=== PATIENT | female | born 1960 | race Caucasian/White ===

== ENCOUNTER 2017-07-28 07:47 | Observation (INO) ==
[2017-07-28] MEDS ORDERED: ALBUTEROL/IPRATROPIUM 2.5mg-0.5mg/3ml NEB IH ONE (07:56)
[2017-07-28] MEDS ORDERED: METHYLPREDNISOLONE SOD SUCC 125mg/2ml INJECTION IVP ONE (07:56)
[2017-07-28] MEDS: SALINE FLUSH 10ml SYRINGE IVF PRN ×2 (08:05→08:13)
--- NOTE | 2017-07-28 09:10 | Emergency Department Report ---
SOB HPI - General Chief Complaint: Shortness of Breath/Dyspnea Stated Complaint: diff breathing, upper resp issues Time Seen by Provider: 07/28/17 07:55 - History of Present Illness 57-year-old female presents with acute shortness of breath. This began greater than 3 days ago. She has not been sleeping well since it started. She is out of medication for her nebulizer. She is leaning forward tripoding with her hands and taking very rapid breaths while sitting on the gurney. No nausea or vomiting , no diarrhea. She does smoke at least a pack a day and drinks alcohol daily. - Related Data Home Medications Medication Instructions Recorded Confirmed Acetaminophen/Dextromethorphan 30 ml PO Q4H PRN 07/28/17 07/28/17 [Daytime Cold & Cough Liquid] [place] [J[place] 650 mg PO Q4H PRN 07/28/17 07/28/17 Original Tab Eff] Aspirin 325 mg PO PRN PRN 07/28/17 07/28/17 Dm/Acetaminophen/Doxylamine 30 ml PO Q4H PRN 07/28/17 07/28/17 [Nighttime Cold-Flu Liquid] Ibuprofen 600 mg PO Q6H PRN 07/28/17 07/28/17 Previous Rx's Medication Instructions Recorded Azithromycin [Zithromax] 500 mg PO DAILY #3 tab 07/28/17 predniSONE [Prednisone] 10 mg PO DAILY #18 tab 07/28/17 Allergies Allergy/AdvReac Type Severity Reaction Status Date / Time hydroxychloroquine Allergy Unknown Verified 07/28/17 07:56 Review of Systems All systems: reviewed and negative except as stated PFSH Patient Stated Medical History Asthma Yes Chronic Obstructive Pulmonary Yes Disease (COPD) Hx Urinary Tract Infection Yes Osteoarthritis Yes Post Menopausal Yes - Social History Smoking status: Current every day smoker second hand exposure: Yes Substance use type: does not use Physical Exam - Limitations Limitations: no limitations - General General appearance: alert, anxious, in distress (respiratory) - Normal Exams: Head:: Normocephalic without trauma Cardiovascular:: without murmur or gallop, Pulses 2+ all extremities, capillary refill, <2 seconds all extremities Abdomen:: Bowel sounds positive, soft, non-tender, non-distended, no hepatosplenomegaly, masses or bruits noted Neurological:: Patient is alert, and oriented, cranial nerves, motor/sensory/ cerebellar, exams w/o gross deficits, to observation Psychiatric:: Patient exhibits, appropriate attention, emotion and affect - Respiratory Respiratory exam: Present: wheezes (tachypnea with wheezes on expiration. She is moving very little air.) - Cardiovascular Cardiovascular exam: Present: normal rhythm, tachycardia, normal heart sounds Course Vital Signs Pulse Oximetry 67 L 07/28/17 07:55 Temperature 97.3 F 07/28/17 07:57 Pulse Rate 91 07/28/17 09:00 Respiratory Rate 24 07/28/17 09:30 Blood Pressure 122/58 07/28/17 09:00 Pulse Oximetry 99 07/28/17 09:30 Shortness of Breath/Dyspnea - [facility] Narrative Medical decision making narrative: IV started with normal saline bolus. Obtained CBC, CMP, d-dimer and chest x- ray. Also swab for influenza. White count is normal CMP does show some mildly low sodium. D-dimer is essentially negative certainly per age. Chest x-ray shows haziness in right. Likely viral type pneumonia. Influenza A did discuss back positive. Patient be placed on prednisone to help with inflammation. She is breathing much better now that she is at the Solu-Medrol and a breathing treatment. However does work towards admitting her, her O2 sats dropped below 89 % every time we would pull oxygen. With O2, she does very well in fact required only one 1/2 L of oxygen typically at this point. She does not use oxygen at home. When she is discharged she will need refills for her nebulizer. Spoke with the hospitalist on-call who accepted admission of patient. - Differential Diagnosis Likely: acute exacerbation of chronic obstructive airways disease, congestive heart failure, community acquired pneumonia, asthma with exacerbation, pulmonary embolism - Medical Records Attestation: I reviewed the patient's medical records. - Lab Data Attestation: I reviewed the patient's lab results. Result diagrams: 07/28/17 08:16 07/28/17 08:16 Lab Results 07/28/17 07/28/17 07/28/17 Range/Units 08:16 08:16 08:16 WBC 4.9 (4.5-11.0) T/MM3 RBC 4.14 (4.00-5.20) M/MM3 Hgb 13.2 (12-16) GM/DL Hct 39.8 (36-46) % MCV 96.1 (80-100) UM3 MCH 31.9 (26-34) UUG MCHC 33.2 (31-37) GM/DL RDW Std Deviation 40.7 (36.9-50.2) FL Plt Count 217 (130-400) T/MM3 MPV 8.9 L (9.4-12.4) UM3 Immature Gran % (Auto) 0.0 (0.0-0.5) % Neut % (Auto) 69.6 H (33-66) % Lymph % (Auto) 20.0 L (23-45) % Love % (Auto) 10.0 H (0-9.0) % Eos % (Auto) 0.0 (0-4) % Baso % (Auto) 0.4 (0-2) % Neut # (Auto) 3.4 (1.8-7.7) T/MM3 Lymph # (Auto) 1.0 (1-4.8) T/MM3 Love # (Auto) 0.5 (0-0.8) T/MM3 Eos # (Auto) 0.0 (0-0.5) T/MM3 Baso # (Auto) 0.0 (0-0.2) T/MM3 Abs Immat Gran (auto) 0.00 (0.00-0.03) T/MM3 D-Dimer (0-230) NG/ML Turbidity < 20 (0-20) Sodium 132 L (134-144) MEQ/L Potassium 4.2 (3.6-5) MEQ/L Chloride 93 L (98-107) MEQ/L Carbon Dioxide 32 H (22-30) MEQ/L Anion Gap 7 (5-15) MEQ/L BUN 10.0 (7-17) MG/DL Creatinine 0.5 L (0.7-1.2) MG/DL GFR Calculation 128 BUN/Creatinine Ratio 20 (6-26) RATIO Glucose 109 (65-110) MG/DL Calculated Osmolality 255 L (261-280) MOSM/KG Calcium 9.0 (8.4-10.2) MG/DL Total Bilirubin < 0.10 L (0.20-1.30) MG/DL Icterus Index < 2 (0-7) AST 33 (14-36) U/L ALT 38 (9-52) U/L Alkaline Phosphatase 54 (38-126) U/L Troponin I < 0.012 (0-0.12) ng/ml B-Natriuretic Peptide 286 H (0-175) pg/mL Total Protein 7.0 (6.3-8.2) G/DL Albumin 4.0 (3.5-5.0) G/DL Globulin 3.0 (2.4-3.6) G/DL Albumin/Globulin Ratio 1.3 (1.1-2.2) RATIO Specimen Hemolysis < 15 (0-25) Influenza Type A (PCR) Positive A* (Negative) Influenza Type B (PCR) Negative (Negative) 07/28/17 Range/Units 08:16 WBC (4.5-11.0) T/MM3 RBC (4.00-5.20) M/MM3 Hgb (12-16) GM/DL Hct (36-46) % MCV (80-100) UM3 MCH (26-34) UUG MCHC (31-37) GM/DL RDW Std Deviation (36.9-50.2) FL Plt Count (130-400) T/MM3 MPV (9.4-12.4) UM3 Immature Gran % (Auto) (0.0-0.5) % Neut % (Auto) (33-66) % Lymph % (Auto) (23-45) % Love % (Auto) (0-9.0) % Eos % (Auto) (0-4) % Baso % (Auto) (0-2) % Neut # (Auto) (1.8-7.7) T/MM3 Lymph # (Auto) (1-4.8) T/MM3 Love # (Auto) (0-0.8) T/MM3 Eos # (Auto) (0-0.5) T/MM3 Baso # (Auto) (0-0.2) T/MM3 Abs Immat Gran (auto) (0.00-0.03) T/MM3 D-Dimer 232 H (0-230) NG/ML Turbidity (0-20) Sodium (134-144) MEQ/L Potassium (3.6-5) MEQ/L Chloride (98-107) MEQ/L Carbon Dioxide (22-30) MEQ/L Anion Gap (5-15) MEQ/L BUN (7-17) MG/DL Creatinine (0.7-1.2) MG/DL GFR Calculation BUN/Creatinine Ratio (6-26) RATIO Glucose (65-110) MG/DL Calculated Osmolality (261-280) MOSM/KG Calcium (8.4-10.2) MG/DL Total Bilirubin (0.20-1.30) MG/DL Icterus Index (0-7) AST (14-36) U/L ALT (9-52) U/L Alkaline Phosphatase (38-126) U/L Troponin I (0-0.12) ng/ml B-Natriuretic Peptide (0-175) pg/mL Total Protein (6.3-8.2) G/DL Albumin (3.5-5.0) G/DL Globulin (2.4-3.6) G/DL Albumin/Globulin Ratio (1.1-2.2) RATIO Specimen Hemolysis (0-25) Influenza Type A (PCR) (Negative) Influenza Type B (PCR) (Negative) - Radiology Data Attestation: I reviewed the patient's radiology results. Disposition Clinical Impression: Influenza A, Pneumonia, Reactive airway disease Disposition: 02 To OBS [facility] [place] Condition: Improved Instructions: Influenza (ED), Pneumonia (ED) Prescriptions: New Azithromycin [Zithromax] 500 mg PO DAILY #3 tab predniSONE [Prednisone] 10 mg PO DAILY #18 tab No Action Aspirin 325 mg PO PRN PRN PRN Reason: Prn Orders Ibuprofen 600 mg PO Q6H PRN PRN Reason: Pain /Fever Dm/Acetaminophen/Doxylamine [Nighttime Cold-Flu Liquid] 30 ml PO Q4H PRN PRN Reason: Prn Orders [place] [[place] Original Tab Eff] 650 mg PO Q4H PRN PRN Reason: Prn Orders Acetaminophen/Dextromethorphan [Daytime Cold & Cough Liquid] 30 ml PO Q4H PRN PRN Reason: Prn Orders Referrals: Jackelin Simon APRN [Family Provider] - Time of Disposition: 10:28 - Seen By: physician
[2017-07-28] MEDS ORDERED: CEFTRIAXONE 1 G INJECTION IM SCH (09:15)
[2017-07-28] MEDS ORDERED: CEFTRIAXONE (ER USE ONLY) 1 GM in NS 100 ML IV ONE (09:19)
[2017-07-28] MEDS ORDERED: ALBUTEROL/IPRATROPIUM 2.5mg-0.5mg/3ml NEB AEROSOL ONE (09:27)
[2017-07-28] MEDS ORDERED: NS FLUSH BAG 500ml IV PRN (10:05)
[2017-07-28] MEDS ORDERED: AZITHROMYCIN 250 MG TABLET PO ONE (10:28)
--- NOTE | 2017-07-28 11:17 | History & Physical Report ---
History of Present Illness Date: 07/28/17 Chief complaint: shortness of breath HPI: Patient is a 57-year-old female who presents to the emergency room with shortness of breath. Symptoms started 3-4 days ago with body aches and chills. Her main complaint at this point is cough, shortness of breath and headache. When she presented to the ER her O2 sat was 67%. She was given Solu-Medrol and DuoNeb treatment and her symptoms did improve. She was requiring only 1/2 L oxygen following her treatment, but she would drop below 90% when oxygen was removed. She tested positive for influenza A. In the ER chest x-ray was negative for pneumonia. EKG normal sinus rhythm with a rate of 85. Normal white count. Sodium was slightly low at 132. She was given a liter of normal saline, ceftriaxone and Zithromax, in addition to Solu-Medrol the DuoNeb treatment. Given her inability to keep O2 sats greater than 90% without O2 and her underlying lung disease, hospitalist service was notified and patient will be admitted the for observation. Review of Systems All systems PM: 10-point ROS was reviewed, no additional remarkable complaints except (headache, cough, shortness of breath. Last week had nausea vomiting and diarrhea but this has resolved) Past Medical History COPD Severe osteoarthritis of the hands Multi-substance abuse Surgical History: Appendectomy Family History: Father and mother both from COPD 3 sisters all have COPD Brother of colon cancer Family History Updates: Updated - Social History Smoking status: Current every day smoker (patient reports she smokes 5 cigarettes a day) Substance use type: methamphetamine (last use was last week. Patient reports she uses it orally. States she puts it in a capsule and takes it with water. Last IV meth use was 8 years ago.) Alcohol intake frequency: 3 or more drinks per day (reports 1-2 beers a day and 1-2 shots of vodka daily) Household members: spouse, friend(s) Current occupational status: employed Current occupation: management supervisor at [employer] Current residence: Apartment/Private Home Social history: No current PCP. [facility] and will establish there. Medications Home Medications Medication Instructions Recorded Confirmed Type Acetaminophen/Dextromethorphan 30 ml PO Q4H PRN 07/28/17 07/28/17 History [Daytime Cold & Cough Liquid] [place] [Johanny-[place] 650 mg PO Q4H PRN 07/28/17 07/28/17 History Original Tab Eff] Aspirin 325 mg PO PRN PRN 07/28/17 07/28/17 History Dm/Acetaminophen/Doxylamine 30 ml PO Q4H PRN 07/28/17 07/28/17 History [Nighttime Cold-Flu Liquid] Ibuprofen 600 mg PO Q6H PRN 07/28/17 07/28/17 History Allergies Allergy/AdvReac Type Severity Reaction Status Date / Time hydroxychloroquine Allergy Unknown Verified 07/28/17 07:56 Exam Vital Signs: Temperature 97.3 F 07/28/17 07:57 Pulse Rate 91 07/28/17 09:00 Respiratory Rate 24 07/28/17 09:30 Blood Pressure 122/58 07/28/17 09:00 Pulse Oximetry 99 07/28/17 09:30 - Constitutional Present: mild distress (mild respiratory distress), well developed, thin - Routine HEENT Exam Head: Present: normocephalic, atraumatic Eye: Present: EOMI, PERRL ENT: Present: mucous membranes moist, oropharynx clear - Routine Neck Exam Present: supple. Absent: lymphadenopathy, thyromegaly - Routine Respiratory Exam Present: wheezes (inspiratory and expiratory- diffuse), diminished air movement - Routine Cardiovascular Exam Present: RRR, no murmur - Routine Abdominal Exam Present: soft, normoactive bowel sounds. Absent: tenderness, distended - Routine Extremities Exam Present: no edema, normal capillary refill - Routine Skin Exam Present: dry, warm - Routine Neurological Exam Present: alert, oriented X3, CN II-XII intact - Routine Psychiatric Exam Present: normal affect, cooperative Results - Labs CBC & Chem 7: 07/28/17 08:16 07/28/17 08:16 Labs: Laboratory Tests 07/28/17 07/28/17 08:16 08:16 D-Dimer 232 H Troponin I < 0.012 B-Natriuretic Peptide 286 H Assessment and Plan Assessment and Plan: Assessment Influenza A Acute respiratory failure with hypoxia COPD Osteoarthritis of the hands Multi-substance abuse Plan Admit to observation status under the hospitalist service, attending. Continue Solu-Medrol IV, DuoNeb's, oxygen as needed, and start Tamiflu. No evidence of bacterial infection at this point. Will need to watch for alcohol withdrawal. Patient declines history of alcohol withdrawal in the past. Nicotine patch and RT consult for tobacco cessation. SCDs for DVT prophylaxis. Patient wishes to be a full code. She lists her granddaughter, Bria Us, as her DPOA-H. Case discussed with Dr. Gomez. Upon discharge she will establish with a PCP at [facility]. DVT Prophylaxis: SCD's Resuscitation Status: Full Code - Physician Narrative Physician: Mei Gomez MD Narrative: Date: 07/28/17 Time: 1704 The patient was independently interviewed and examined by me. She is currently resting comfortable when seen by me. She is on oxygen. She reports a 3 to 4 day history of chills, body aches, cough, headache and worsening shortness of breath. She did go to her primary care physicians office a couple of days ago but left because the weight was too long. She presented to the emergency room and on room air her oxygenation saturations was only 67%. She does have underlying COPD and reports having been out of her nebulizer medication for quite a while now. She continues to smoke one half to one pack a day. She drinks alcohol daily. Chest x-ray revealed large lungs consistent with COPD. She was given IV Solu-Medrol and a dose of Rocephin in the emergency room. After nebulizers she was 99% on 2 L, 95% on 1 L but on room air was only 87%. This felt lower with activity. She was subsequently admitted. Her influenza A was positive. In general she is alert and oriented in no acute distress. Her skin is warm and dry. Her neck is supple without JVD. Carotids are 2+ and upstroke without bruits. Her lungs are diminished, course with bilateral expiratory wheezing. Her heart is regular without murmur. She has no lower extremity edema. Her abdomen is soft, nontender with positive bowel sounds. We will initiate Tamiflu and continue IV steroids. I don't currently seen indication for antibiotics. I have reviewed her labs, notes and imaging. Case discussed with PA. Care plan developed with my supervision; agree with above. Hospital Course Summary Disclaimer: The visit summary below is not to be considered part of the above Progress Note. Hospital Course: 07/28/17-hospital admission for observation Admit to observation status under the hospitalist service, attending. Continue Solu-Medrol IV, DuoNeb's, oxygen as needed, and start Tamiflu. No evidence of bacterial infection at this point. Will need to watch for alcohol withdrawal. Patient declines history of alcohol withdrawal in the past. Nicotine patch and RT consult for tobacco cessation. SCDs for DVT prophylaxis. Patient wishes to be a full code. She lists her granddaughter, Bria Us, as her DPOA-H. Case discussed with Dr. Gomez. Upon discharge she will establish with a PCP at [facility].
[2017-07-28] MEDS ORDERED: ONDANSETRON 4 MG/2 ML INJECTION IVP PRN (11:43)
[2017-07-28] MEDS ORDERED: NS 1,000 ML IV SCH (12:00)
[2017-07-28] MEDS: NICOTINE 14 MG PATCH TD SCH (13:02)
[2017-07-28] MEDS: ALBUTEROL/IPRATROPIUM 2.5mg-0.5mg/3ml NEB AEROSOL SCH ×3 (13:05→19:47)
[2017-07-28] MEDS: NICOTINE 7 MG PATCH TD SCH (13:17)
[2017-07-28] MEDS: SALINE FLUSH 10ml SYRINGE IV PRN ×3 (13:34→20:22)
[2017-07-28] MEDS: METHYLPREDNISOLONE SOD SUCC 125mg/2ml INJECTION IVP SCH ×2 (16:30→20:23)
[2017-07-28] MEDS: ACETAMINOPHEN 325 MG TABLET PO PRN (19:40)
[2017-07-29] MEDS: METHYLPREDNISOLONE SOD SUCC 125mg/2ml INJECTION IVP SCH ×3 (03:56→14:27)
[2017-07-29] MEDS: ALBUTEROL/IPRATROPIUM 2.5mg-0.5mg/3ml NEB AEROSOL SCH ×3 (07:23→15:43)
[2017-07-29] MEDS: NICOTINE 14 MG PATCH TD SCH (08:19)
[2017-07-29] MEDS: NICOTINE PATCH REMOVAL TD SCH (08:19)
[2017-07-29] MEDS: NICOTINE 7 MG PATCH TD SCH (08:19)
[2017-07-29] MEDS: ACETAMINOPHEN 325 MG TABLET PO PRN (08:20)
--- NOTE | 2017-07-29 09:21 | XRay Report ---
INDICATION: soa PROCEDURE: CHEST 2-VIEWS UPRIGHT (PA & LAT) Encounter: Initial Comparison: November 11, 2014 Findings: The lungs are stable in appearance without new focal airspace consolidation. Emphysema. There is no pleural effusion or pneumothorax. The heart size, pulmonary vascularity and mediastinal contours are unchanged. IMPRESSION: Stable appearance of the chest without acute cardiopulmonary disease. .
--- NOTE | 2017-07-29 11:53 | Progress Note ---
- Date 07/29/17 Subjective: 57-year-old female who presents to the emergency room with shortness of breath. Symptoms started 3-4 days ago with body aches and chills. Her main complaint at this point is cough, shortness of breath and headache. When she presented to the ER her O2 sat was 67%. She was given Solu-Medrol and DuoNeb treatment and her symptoms did improve. She was requiring only 1/2 L oxygen following her treatment, but she would drop below 90% when oxygen was removed. She tested positive for influenza A. In the ER chest x-ray was negative for pneumonia. EKG normal sinus rhythm with a rate of 85. Normal white count. Sodium was slightly low at 132. She was given a liter of normal saline, ceftriaxone and Zithromax, in addition to Solu-Medrol the DuoNeb treatment. Given her inability to keep O2 sats greater than 90% without O2 and her underlying lung disease, hospitalist service was notified and patient will be admitted the for observation. Today, she reports still being short of breath. She does have a cough with minimal sputum production. She states she does have a bit of chest discomfort that is worse with deep breathing and coughing. Otherwise she's feeling a bit better. She denies fever or chills. She denies feeling jittery or having any tremors. She is eating well and denies nausea or vomiting or diarrhea. She has remained afebrile. She is still requiring 2 to 2 1/2 liters of oxygen to maintain saturations. She continues to wheeze. Objective Vital signs: Temperature 96.8 F 07/29/17 08:00 Pulse Rate 94 07/29/17 08:00 Respiratory Rate 18 07/29/17 11:25 Blood Pressure 126/63 07/29/17 08:00 Pulse Oximetry 96 07/29/17 11:25 Height/Weight/BMI: Height 1.6 m Weight 43.9 kg Body Mass Index 17.1 Comments: Gen: alert and oriented. NAD Skin: warm and dry HEENT: NC/AT PERRL, EOMI, Sclera, lids and conjunctiva wnl. MMM. OP clear. Neck: No JVD, Carotids 2+ without bruits Lungs: diminished, coarse, bilateral wheeze CV: regular. No murmur, rub or gallop Abd: soft. +BS. NT/ND MS: No edema. Good strength and ROM Neuro: No focal deficits Results - Labs CBC & Chem 7: 07/29/17 03:58 07/29/17 03:58 Assessment and Plan Assessment and Plan: Assessment and Plan: 1. Influenza A -continue full course of Tamiflu -Titrate oxygen as able, may need to send home on oxygen -will ask Dr. White to see her. 2. Acute respiratory failure with hypoxia -Resp therapy -IV steroids, decrease dosing tomorrow 3. COPD -Resp therapy and IV steroids 4. Osteoarthritis of the hands 5. Multi-substance abuse -Provide nicotine patch for tobacco addiction -Watch for ETOH w/d - on protocol 6. Prophylaxis -SCD, ambulate - Physician Narrative Narrative: Date: 07/29/17 Time: 1147 Hospital Course Summary Disclaimer: The visit summary below is not to be considered part of the above Progress Note. Hospital Course: 07/28/17-hospital admission for observation Admit to observation status under the hospitalist service, attending. Continue Solu-Medrol IV, DuoNeb's, oxygen as needed, and start Tamiflu. No evidence of bacterial infection at this point. Will need to watch for alcohol withdrawal. Patient declines history of alcohol withdrawal in the past. Nicotine patch and RT consult for tobacco cessation. SCDs for DVT prophylaxis. Patient wishes to be a full code. She lists her granddaughter, Bria Us, as her DPOA-H. Case discussed with Dr. Gomez. Upon discharge she will establish with a PCP at [facility].
--- NOTE | 2017-07-29 15:25 | Pulmonology Consult Note ---
History of Present Illness Consult date: 07/29/17 Reason for consult: dyspnea Chief complaint: cough, shortness of breath History of present illness: HPI: Patient is a 57-year-old female who presents to the emergency room with shortness of breath. Symptoms started 3-4 days ago with body aches and chills. Her main complaint at this point is cough, shortness of breath and headache. When she presented to the ER her O2 sat was 67%. She was given Solu-Medrol and DuoNeb treatment and her symptoms did improve. She was requiring only 1/2 L oxygen following her treatment, but she would drop below 90% when oxygen was removed. She tested positive for influenza A. In the ER chest x-ray was negative for pneumonia. EKG normal sinus rhythm with a rate of 85. Normal white count. Sodium was slightly low at 132. She was given a liter of normal saline, ceftriaxone and Zithromax, in addition to Solu-Medrol the DuoNeb treatment. Given her inability to keep O2 sats greater than 90% without O2 and her underlying lung disease, hospitalist service was notified and patient will be admitted the for observation. Review of Systems All systems PM: 10-point ROS was reviewed, no additional remarkable complaints except (headache, cough, shortness of breath. Last week had nausea vomiting and diarrhea but this has resolved) Past Medical History COPD Severe osteoarthritis of the hands Multi-substance abuse Surgical History: Appendectomy Family History: Father and mother both from COPD 3 sisters all have COPD Brother of colon cancer Family History Updates: Updated - Social History Smoking status: Current every day smoker (patient reports she smokes 5 cigarettes a day) Substance use type: methamphetamine (last use was last week. Patient reports she uses it orally. States she puts it in a capsule and takes it with water. Last IV meth use was 8 years ago.) Alcohol intake frequency: 3 or more drinks per day (reports 1-2 beers a day and 1-2 shots of vodka daily) Household members: spouse, friend(s) Current occupational status: employed Current occupation: website developer at [employer] Current residence: Apartment/Private Home Social history: No current PCP. [facility] and will establish there. [facility] Patient Stated Medical History Asthma Yes Chronic Obstructive Pulmonary Yes Disease (COPD) Hx Urinary Tract Infection Yes Osteoarthritis Yes Post Menopausal Yes Surgical History: Appendectomy - Social History Smoking status: Current every day smoker (patient reports she smokes 5 cigarettes a day) Current residence: Apartment/Private Home Medications Home Medications Medication Instructions Recorded Confirmed Type Acetaminophen/Dextromethorphan 30 ml PO Q4H PRN 07/28/17 07/28/17 History [Daytime Cold & Cough Liquid] Johanny-[place] [Johanny-[place] 650 mg PO Q4H PRN 07/28/17 07/28/17 History Original Tab Eff] Aspirin 325 mg PO PRN PRN 07/28/17 07/28/17 History Dm/Acetaminophen/Doxylamine 30 ml PO Q4H PRN 07/28/17 07/28/17 History [Nighttime Cold-Flu Liquid] Ibuprofen 600 mg PO Q6H PRN 07/28/17 07/28/17 History Allergies Allergy/AdvReac Type Severity Reaction Status Date / Time hydroxychloroquine Allergy Unknown Verified 07/28/17 07:56 Exam Vital signs: Temperature 96.8 F 07/29/17 08:00 Pulse Rate 94 07/29/17 08:00 Respiratory Rate 18 07/29/17 11:25 Blood Pressure 126/63 07/29/17 08:00 Pulse Oximetry 96 07/29/17 11:25 - Constitutional no acute distress, thin - Routine HEENT Exam Head: Present: normocephalic, atraumatic Eye: Absent: conjunctival icterus ENT: Present: mucous membranes moist - Routine Neck Exam Present: supple - Routine Respiratory Exam Present: decreased breath sounds, prolonged expiratory phase. Absent: wheezes - Routine Cardiovascular Exam Present: RRR - Routine Abdominal Exam Present: soft - Routine Extremities Exam Absent: cyanosis - Detailed Upper Extremity Exam Hand/Fingers: Bilateral joint deformity, Bilateral joint swelling, Bilateral decreased ROM - Routine Neurological Exam Present: alert, oriented X3 Results - Laboratory Findings CBC and BMP: 07/29/17 03:58 07/29/17 03:58 PT/INR, D-dimer D-Dimer 232 NG/ML (0-230) H 07/28/17 08:16 Abnormal lab findings: Abnormal Labs 07/28/17 07/29/17 07/29/17 13:09 03:58 03:58 WBC 3.8 L Neut % (Auto) 77.3 H Lymph % (Auto) 14.9 L Lymph # (Auto) 0.6 L Chloride 96 L Carbon Dioxide 34 H Creatinine 0.4 L BUN/Creatinine Ratio 30 H Glucose 163 H Ur Specific [place] <=1.005 L Urine Glucose (UA) Trace A Urine Occult Blood 2+ A - Diagnostic Findings Chest x-ray: report reviewed Assessment and Plan (1) Chronic obstructive pulmonary disease with acute exacerbation Status: Acute Assessment and plan: strong family history of COPD will necessitate outpatient A1A screen Recommend OP PFT. We will plan to d/c home with nebulized albuterol/ipratropium QID. We will discuss chronic management once we see in the office. recommend smoking cessation Current Visit: Yes (2) Acute respiratory failure with hypoxia Status: Acute Assessment and plan: It is unclear whether we will be able to discontinue her O2 upon dismissal. She may need home O2. Current Visit: Yes (3) Influenza A Status: Acute Assessment and plan: supportive care and source control Current Visit: Yes - Time Spent With Patient Total time spent is greater than 50% in coordination of care (as documented) at patient's floor/unit and/or counseling patient: less than 15 minutes
[2017-07-30] MEDS: METHYLPREDNISOLONE SOD SUCC 125mg/2ml INJECTION IVP SCH ×3 (00:36→08:19)
[2017-07-30] MEDS: SALINE FLUSH 10ml SYRINGE IV PRN ×2 (00:37→08:21)
[2017-07-30] MEDS ORDERED: METHYLPREDNISOLONE SOD SUCC 125mg/2ml INJECTION IVP SCH ×2 (01:00→03:00)
[2017-07-30 01:36] VITALS: PULSE 84
[2017-07-30] MEDS: ALBUTEROL/IPRATROPIUM 2.5mg-0.5mg/3ml NEB AEROSOL SCH (06:58)
[2017-07-30 07:57] VITALS: BP 125/68; TEMP 96.5
[2017-07-30] MEDS: NICOTINE PATCH REMOVAL TD SCH (08:19)
[2017-07-30] MEDS: NICOTINE 7 MG PATCH TD SCH (08:19)
[2017-07-30] MEDS: NICOTINE 14 MG PATCH TD SCH (08:23)
[2017-07-30 10:20] VITALS: BMI 17.4
[2017-07-30 11:38] VITALS: RESP 24; O2SAT 93
--- NOTE | 2017-07-30 14:20 | Progress Note ---
- Date 07/30/17 Subjective: Raquel is seen today in follow up. Initially when she was on 2 liters, however, is able to be weaned off, and maintains 91% on room air. She did have mild wheezing upon auscultation. Overall, she states that her breathing has significantly improved. She denies having any chest pain or abdominal pain. Appetite is good. Objective Vital signs: Temperature 96.5 F L 07/30/17 07:00 Pulse Rate 84 07/30/17 07:00 Respiratory Rate 24 07/30/17 11:37 Blood Pressure 125/68 07/30/17 07:00 Pulse Oximetry 93 07/30/17 11:37 Height/Weight/BMI: Height 1.6 m Weight 44.7 kg Body Mass Index 17.4 - Constitutional Present: no acute distress, well nourished, well developed - Routine HEENT Exam Eye: Present: EOMI ENT: Present: mucous membranes moist, dentition normal - Routine Respiratory Exam Present: wheezes - Routine Cardiovascular Exam Present: RRR, S1, S2. Absent: murmur - Routine Abdominal Exam Present: soft, normoactive bowel sounds, non distended. Absent: tenderness - Routine Extremities Exam Present: full ROM, normal capillary refill - Routine Back/Spine/Pelvis Exam Back/Spine: Present: full ROM - Routine Skin Exam Present: intact, dry, warm - Routine Neurological Exam Present: alert, oriented X3, CN II-XII intact, moving all extremities - Routine Lymphatic Exam Lymphatic: Absent: adenopathy - Routine Psychiatric Exam Present: normal affect, cooperative Results - Labs CBC & Chem 7: 07/30/17 04:10 07/30/17 04:10 Assessment and Plan Assessment and Plan: Impression Influenza A Acute respiratory failure with hypoxia COPD Osteoarthritis of the hands Multi-substance abuse- Tobacco and ETOH use Plan Was able to wean off oxygen and is maintaining sats on room air. Continues to be on IV steroids will continue to wean down Would like patient to be evaluated this afternoon by pulmonology prior to discharge Continue on Tamiflu through 08/01/17 Nicotine patch Monitor for evidence of ETOH withdrawal Case discussed with Pulmonary team and attending - Physician Narrative Physician: Maria Isabel Torres MD Narrative: Date: 07/30/17 Time: 1411 See my comments on the discharge summary. Hospital Course Summary Disclaimer: The visit summary below is not to be considered part of the above Progress Note. Hospital Course: 07/28/17-hospital admission for observation Admit to observation status under the hospitalist service, attending. Continue Solu-Medrol IV, DuoNeb's, oxygen as needed, and start Tamiflu. No evidence of bacterial infection at this point. Will need to watch for alcohol withdrawal. Patient declines history of alcohol withdrawal in the past. Nicotine patch and RT consult for tobacco cessation. SCDs for DVT prophylaxis. Patient wishes to be a full code. She lists her granddaughter, Bria Us, as her DPOA-H. Case discussed with Dr. Gomez. Upon discharge she will establish with [facility]. 07/30/17 Was able to wean off oxygen and is maintaining sats on room air. Continues to be on IV steroids will continue to wean down Would like patient to be evaluated this afternoon by pulmonology prior to discharge Continue on Tamiflu through 08/01/17 Nicotine patch Monitor for evidence of ETOH withdrawal Case discussed with Pulmonary team and attending
[2017-07-30] MEDS ORDERED: PredniSONE 20 MG TABLET PO SCH (14:46)
--- NOTE | 2017-07-30 14:46 | Pulmonology Progress Note ---
Subjective Principal diagnosis: SOB Interval history: Pt in bed, states she is ready to go home. No SOB noted, slight cough with some sputum. Exam Vital signs: Temperature 96.5 F L 07/30/17 07:00 Pulse Rate 84 07/30/17 07:00 Respiratory Rate 24 07/30/17 11:37 Blood Pressure 125/68 07/30/17 07:00 Pulse Oximetry 93 07/30/17 11:37 - Constitutional no acute distress, thin, cooperative - Routine HEENT Exam Head: Present: normocephalic, atraumatic Eye: Present: EOMI, PERRL ENT: Present: mucous membranes moist - Routine Neck Exam Present: supple, full ROM, trachea midline - Routine Respiratory Exam Present: decreased breath sounds, wheezes Comments: slight wheezes noted - Routine Cardiovascular Exam Present: RRR, S1, S2, no murmur - Routine Abdominal Exam Present: soft, normoactive bowel sounds - Routine Extremities Exam Present: no edema, non tender, full ROM - Routine Back/Spine/Pelvis Exam Back/Spine: Present: full ROM - Routine Skin Exam Present: intact, dry - Routine Neurological Exam Present: alert, oriented X3, CN II-XII intact - Routine Psychiatric Exam Present: normal affect, normal thought process Assessment and Plan - Assessment and Plan COPD exacerbation Influenza A Tobaccoism Plan: Pt currently on RA, adelaida well. Would give prednisone 60mg then start 40 mg taper tomorrow. Slight wheezing noted, would continue with A/A QID, prednisone and tamiflu. Needs OP f/u in 2-3 weeks with a PFT and A1A deficiency testing secondary to extensive family Hx of COPD. Encouraged smoking cessation. - Time Spent With Patient Total time spent is greater than 50% in coordination of care (as documented) at patient's floor/unit and/or counseling patient: less than 15 minutes
--- NOTE | 2017-07-30 18:56 | Discharge Summary ---
Discharge Information Date of admission: 07/28/17 11:02 Anticipated date of discharge: 07/30/17 Attending Physician: Maria Isabel Torres MD Primary care physician: Gay birch Consults: Dr White- Pulmonary Discharge diagnosis Influenza A Acute respiratory failure with hypoxia COPD Osteoarthritis of the hands Multi-substance abuse- Tobacco and ETOH use - Procedures Procedures: None - Laboratory Labs: 07/30/17 04:10 07/30/17 04:10 - Microbiology None - Radiology Radiology: 07/28/17- Chest Xray- IMPRESSION: Stable appearance of the chest without acute cardiopulmonary disease. - Pathology None History of Present Illness HPI: Patient is a 57-year-old female who presents to the emergency room with shortness of breath. Symptoms started 3-4 days ago with body aches and chills. Her main complaint at this point is cough, shortness of breath and headache. When she presented to the ER her O2 sat was 67%. She was given Solu-Medrol and DuoNeb treatment and her symptoms did improve. She was requiring only 1/2 L oxygen following her treatment, but she would drop below 90% when oxygen was removed. She tested positive for influenza A. In the ER chest x-ray was negative for pneumonia. EKG normal sinus rhythm with a rate of 85. Normal white count. Sodium was slightly low at 132. She was given a liter of normal saline, ceftriaxone and Zithromax, in addition to Solu-Medrol the DuoNeb treatment. Given her inability to keep O2 sats greater than 90% without O2 and her underlying lung disease, hospitalist service was notified and patient will be admitted the for observation. Objective Vital signs: Temperature 96.5 F L 07/30/17 07:00 Pulse Rate 84 07/30/17 07:00 Respiratory Rate 24 07/30/17 11:37 Blood Pressure 125/68 07/30/17 07:00 Pulse Oximetry 93 07/30/17 11:37 Height/Weight/BMI: Height 1.6 m Weight 44.7 kg Body Mass Index 17.4 - Constitutional Present: well nourished, well developed - Routine HEENT Exam Eye: Present: EOMI ENT: Present: mucous membranes moist, dentition normal - Routine Respiratory Exam Present: wheezes, diminished air movement (bilateral bases) - Routine Cardiovascular Exam Present: RRR, S1, S2. Absent: murmur - Routine Abdominal Exam Present: soft, normoactive bowel sounds, non distended. Absent: tenderness - Routine Extremities Exam Present: full ROM - Routine Back/Spine/Pelvis Exam Back/Spine: Present: full ROM - Routine Skin Exam Present: intact, dry, warm - Routine Neurological Exam Present: alert, oriented X3, CN II-XII intact, moving all extremities - Routine Lymphatic Exam Lymphatic: Absent: adenopathy - Routine Psychiatric Exam Present: normal affect, cooperative Hospital Course This is a general summary of the patient's hospital course. For more details refer to the complete medical record. Hospital course: 07/28/17-hospital admission for observation Admit to observation status under the hospitalist service, attending. Continue Solu-Medrol IV, DuoNeb's, oxygen as needed, and start Tamiflu. No evidence of bacterial infection at this point. Will need to watch for alcohol withdrawal. Patient declines history of alcohol withdrawal in the past. Nicotine patch and RT consult for tobacco cessation. SCDs for DVT prophylaxis. Patient wishes to be a full code. She lists her granddaughter, Bria Us, as her DPOA-H. Case discussed with Dr. Gomez. Upon discharge she will establish with a PCP at [facility]. 07/29/17 1. Influenza A-continue full course of Tamiflu -Titrate oxygen as able, may need to send home on oxygen, -will ask Dr. White to see her. 2. Acute respiratory failure with hypoxia -Resp therapy -IV steroids, decrease dosing tomorrow 3. COPD-Resp therapy and IV steroids. 4. Osteoarthritis of the hands. 5. Multi- substance abuse -Provide nicotine patch for tobacco addiction 07/30/17- Discharge Raquel is seen and examined today prior to discharge. She is able to be weaned down off oxygen and is tolerating room air getting adequate saturations over 90% . Discharge plan discussed with consultation pulmonology group. She will be discharged to continue on Tamiflu for 5 additional doses. She will continue on a prednisone taper-60 milligrams tomorrow, then 40 milligrams daily for 4 additional days. She is instructed to follow-up with Dr. White in the next 2-3 weeks for further pulmonology evaluation PFTs, and alpha-1 AT testing. She will continue on DuoNeb 4 times a day as recommended by Dr. White. She is instructed to follow-up with primary care provider at [facility] in 1 week. Tobacco cessation is encouraged and prescription for nicotine patches given at time of discharge. Patient states that she feels ready to be discharged and is in stable condition. Time spent with patient: greater than 35 minutes Resuscitation Status: Full Code Discharge Plan - Discharge Disposition Discharge Date: 07/30/17 Disposition: Discharged Home, Self-Care *Condition: Improved Reason For Visit (Visit label in EMR): diff breathing, upper resp issues - Discharge Medications *Discharge Medications: New Nicotine Patch [Nicoderm] 7 mg TD DAILY #14 patch Oseltamivir Cap [Tamiflu] 75 mg PO BID #5 cap PredniSONE [Deltasone 20 mg] 60 mg PO WB #12 tab Acetaminophen [Tylenol] 325 mg PO Q5H PRN tab PRN Reason: Discomfort Albuterol/Ipratropium [Duoneb] 3 ml AEROSOL RTQID #120 vial Continue Ibuprofen 600 mg PO Q6H PRN PRN Reason: Pain /Fever Dm/Acetaminophen/Doxylamine [Nighttime Cold-Flu Liquid] 30 ml PO Q4H PRN PRN Reason: Prn Orders Acetaminophen/Dextromethorphan [Daytime Cold & Cough Liquid] 30 ml PO Q4H PRN PRN Reason: Prn Orders Discontinued Aspirin 325 mg PO PRN PRN PRN Reason: Prn Orders Johanny-[place] [Johanny-[place] Original Tab Eff] 650 mg PO Q4H PRN PRN Reason: Prn Orders - Discharge Packet/Instructions *Diet: regular *Activity: as tolerates *Pain Management/Treatment: ibuprofen or tylenol as needed for myalgias *Wound Care: N/A Additional Instructions: continue Tamiflu twice daily for 5 more doses-next dose is this evening. You are infectious until medication completed. Prednisone 60 mg (3-20 mg tablets) tomorrow, then 2 tablets daily for 4 days. Can discontinue prednisone at that time unless having ongoing trouble breathing in which case need to be re-evaluated at the end of the week. Schedule follow up appt with provider at [facility] for the next 3-5 days. Schedule appt with Dr. White for additional lung tests in 2-3 weeks. *Expected Signs/Symptoms: cough, shortness of breath when you are active *Notify Physician if: fever, pass out, trouble breathing worsens *During Business Hours Contact: [facility] *After Business Hours Contact: Call [facility] at [phone] and ask that the on-call physician be paged for [facility] *Pending Lab/Results: No Pending Lab - Referrals/Follow Up *Referrals/Follow Up: Te White MD [Physician] - (2-3 wks with PFTs and alpha 1AT) - Patient Handouts Patient Handouts: Influenza (DC) - Dismissal Complete Discharge Instructions are:: Complete Physician Narrative - Narrative Physician: Maria Isabel Torres MD Attestation Narrative: Date: 07/30/17 Time: 2099 I have independently evaluated and examined this patient. I reviewed the chart, the patient's history, and the QUALITY ASSURANCE/R&D LAB TECHNICIAN/PA's documented findings as above. We discussed and formulated the assessment and plan as above with additions as below: Raquel was seen earlier this afternoon and discharge instructions were completed for her at that time she reports feeling significantly better with resolution of dyspnea and improvement in her appetite. She indicated she's been having very weird dreams at night and I recommended removing the nicotine patch at night. Respirations are nonlabored with decreased breath sounds but no wheezing at the time of my exam. Cardiac exam is regular. Steroid taper as previously described, continue DuoNeb 4 times a day, complete Tamiflu. Outpatient follow-up as described. Discharge plans discussed with pulmonary.
== END 2017-07-30 15:30 | disposition home or self-care (01) ==
LOC: ED 07:47 → MED 07:47 → SUATTDRO 11:02 → MED 11:15
PROVIDERS: ADMIT Internal Medicine Cardiovascular Disease; ATTEND Internal Medicine

== ENCOUNTER 2017-08-09 15:35 | Inpatient (IN) ==
[2017-08-09] MEDS ORDERED: METHYLPREDNISOLONE SOD SUCC 125mg/2ml INJECTION IVP ONE (16:09)
[2017-08-09] MEDS ORDERED: ALBUTEROL/IPRATROPIUM 2.5mg-0.5mg/3ml NEB AEROSOL ONE (16:09)
--- NOTE | 2017-08-09 16:40 | Emergency Department Report ---
URI/Sore Throat HPI - General Chief Complaint: Upper Respiratory Infection Stated Complaint: Diff breathing Time Seen by Provider: 08/09/17 16:00 Source: patient Mode of arrival: ambulatory Limitations: no limitations - History of Present Illness HPI Narrative: Pt presents with a complaint of SOA for the last 3 days. Pt was dismissed 6 days ago from a 3 day admission for a COPD exacerbation. Pt reports she has not smoked since she was dismissed. She has been using her nebulizer and she completed her Tamiflu. Pt denies fever, does have a productive cough, and denies any GI complaints. She does not use O2 at home MD Complaint: cough Onset (ago): day(s) Duration: constant Severity: severe Relieving factors: nothing Exacerbating factors: exertion, speaking Description of mucous: watery Able to tolerate fluids by mouth: Yes Associated symptoms: denies other symptoms Treatments prior to arrival: other (nebulizer) - Related Data Home Medications Medication Instructions Recorded Confirmed Acetaminophen/Dextromethorphan 30 ml PO Q4H PRN 07/28/17 08/09/17 [Daytime Cold & Cough Liquid] Dm/Acetaminophen/Doxylamine 30 ml PO Q4H PRN 07/28/17 08/09/17 [Nighttime Cold-Flu Liquid] Ascorbic Acid [Vitamin C] 500 mg PO DAILY 08/09/17 08/09/17 Previous Rx's Medication Instructions Recorded Albuterol/Ipratropium [Duoneb] 3 ml AEROSOL RTQID #120 vial 07/30/17 Allergies Allergy/AdvReac Type Severity Reaction Status Date / Time hydroxychloroquine Allergy Severe Rash Verified 08/09/17 15:50 Review of Systems All systems: reviewed and negative except as stated Constitutional: Reports: as per HPI Cardiovascular: Reports: as per HPI Respiratory: Reports: as per HPI Gastrointestinal: Reports: as per HPI PFSH Patient Stated Medical History Asthma Yes Chronic Obstructive Pulmonary Yes Disease (COPD) Hx Urinary Tract Infection Yes Osteoarthritis Yes Post Menopausal Yes Surgical History: Appendectomy - Social History Smoking status: Current every day smoker (patient reports she smokes 5 cigarettes a day) Current residence: Apartment/Private Home Physical Exam - Limitations Limitations: no limitations - General General appearance: alert, in distress - Normal Exams: Head:: Normocephalic without trauma Neck:: Full range of motion, without adenopathy Cardiovascular:: Regular rate and rhythm, without murmur or gallop, Pulses 2+ all extremities, capillary refill, <2 seconds all extremities Abdomen:: Bowel sounds positive, soft, non-tender, non-distended Musculoskeletal:: No tenderness, or deformity noted, good range of motion, all extremities Integumentary:: No rashes Neurological:: Patient is alert, and oriented, cranial nerves, motor/sensory/ cerebellar, exams w/o gross deficits, to observation Psychiatric:: Patient exhibits, appropriate attention, emotion and affect - Expanded Respiratory Exam Location: Left: wheezes, rhonchi, decreased breath sounds, Right: wheezes, rhonchi, decreased breath sounds, Upper: wheezes, rhonchi, decreased breath sounds, Lower: wheezes, rhonchi, decreased breath sounds Course Vital Signs Temperature 98.4 F 08/09/17 15:40 Pulse Rate 123 H 08/09/17 15:40 Respiratory Rate 24 08/09/17 15:40 Blood Pressure 156/93 H 08/09/17 15:40 Pulse Oximetry 76 L 08/09/17 15:40 Temperature 98.4 F 08/09/17 15:40 Pulse Rate 112 H 08/09/17 17:05 Respiratory Rate 20 08/09/17 17:05 Blood Pressure 124/70 08/09/17 17:05 Pulse Oximetry 93 08/09/17 17:31 Upper Respiratory Infection - MDM Narrative Medical decision making narrative: Xray and labs reviewed consistent with exacerbation of COPD. Pt lung sounds improved after receiving Duoneb as well as a dose of Solu Medrol. Attempted to wean pt from O2 without success. Pt in mid 80s after being on room air 2-[address] Calhoun notified and agrees to admit. Pt notified of results and plan and voices understanding - Differential Diagnosis Differential diagnosis: Likely: upper respiratory infection, viral infection ( copd), bronchitis, influenza, pharyngitis - Lab Data Attestation: I reviewed the patient's lab results. Result diagrams: 08/09/17 16:24 08/09/17 16:24 Lab Results 08/09/17 08/09/17 Range/Units 16:24 16:24 WBC 9.5 (4.5-11.0) T/MM3 RBC 3.97 L (4.00-5.20) M/MM3 Hgb 12.4 (12-16) GM/DL Hct 38.2 (36-46) % MCV 96.2 (80-100) UM3 MCH 31.2 (26-34) UUG MCHC 32.5 (31-37) GM/DL RDW Std Deviation 41.6 (36.9-50.2) FL Plt Count 380 D (130-400) T/MM3 MPV 8.4 L (9.4-12.4) UM3 Immature Gran % (Auto) 0.1 (0.0-0.5) % Neut % (Auto) 82.8 H (33-66) % Lymph % (Auto) 6.8 L (23-45) % Donley % (Auto) 9.8 H (0-9.0) % Eos % (Auto) 0.4 (0-4) % Baso % (Auto) 0.1 (0-2) % Neut # (Auto) 7.9 H (1.8-7.7) T/MM3 Lymph # (Auto) 0.7 L (1-4.8) T/MM3 Donley # (Auto) 0.9 H (0-0.8) T/MM3 Eos # (Auto) 0.0 (0-0.5) T/MM3 Baso # (Auto) 0.0 (0-0.2) T/MM3 Abs Immat Gran (auto) 0.01 (0.00-0.03) T/MM3 Turbidity < 20 (0-20) Sodium 133 L (134-144) MEQ/L Potassium 4.5 (3.6-5) MEQ/L Chloride 93 L (98-107) MEQ/L Carbon Dioxide 32 H (22-30) MEQ/L Anion Gap 8 (5-15) MEQ/L BUN 11.0 (7-17) MG/DL Creatinine 0.5 L (0.7-1.2) MG/DL GFR Calculation 128 BUN/Creatinine Ratio 22 (6-26) RATIO Glucose 138 H (65-110) MG/DL Calculated Osmolality 257 L (261-280) MOSM/KG Calcium 8.7 (8.4-10.2) MG/DL Total Bilirubin 0.30 (0.20-1.30) MG/DL Icterus Index < 2 (0-7) AST 29 (14-36) U/L ALT 43 (9-52) U/L Alkaline Phosphatase 51 (38-126) U/L Total Protein 7.0 (6.3-8.2) G/DL Albumin 4.0 (3.5-5.0) G/DL Globulin 3.0 (2.4-3.6) G/DL Albumin/Globulin Ratio 1.3 (1.1-2.2) RATIO Specimen Hemolysis < 15 (0-25) - Radiology Data Attestation: I reviewed the patient's radiology results. (read per Dr Cruz with no acute findings) Disposition Clinical Impression: COPD exacerbation [place]: [place] [facility] Care Condition: Improved Prescriptions: No Action Dm/Acetaminophen/Doxylamine [Nighttime Cold-Flu Liquid] 30 ml PO Q4H PRN PRN Reason: Prn Orders Acetaminophen/Dextromethorphan [Daytime Cold & Cough Liquid] 30 ml PO Q4H PRN PRN Reason: Prn Orders Ascorbic Acid [Vitamin C] 500 mg PO DAILY Albuterol/Ipratropium [Duoneb] 3 ml AEROSOL RTQID #120 vial Referrals: Jackelin Simon, BRICK MACHINE OPERATOR [Family Provider] - Time of Disposition: 17:43 - Seen By: midlevel
[2017-08-09] MEDS: SALINE FLUSH 10ml SYRINGE IVF PRN ×2 (16:59→19:46)
--- NOTE | 2017-08-09 17:00 | XRay Report ---
INDICATION: soa,copd PROCEDURE: CHEST 2-VIEWS UPRIGHT (PA & LAT) Encounter: Initial Comparison: July 28, 2017 Findings: The lungs are stable in appearance without new focal airspace consolidation. Hyperinflation and emphysema. There is no pleural effusion or pneumothorax. The heart size, pulmonary vascularity and mediastinal contours are unchanged. IMPRESSION: Stable appearance of the chest without acute cardiopulmonary disease. .
--- NOTE | 2017-08-09 18:19 | History & Physical Report ---
History of Present Illness Date: 08/09/17 Chief complaint: severe dyspnea, recent influenza A with COPD exacerbation HPI: Patient is 57 showed female who is well known to the hospitalist services after a recent admission on 07/28/17 for influenza A with acute respiratory failure, hypoxia and COPD. She was hospitalized as an outpatient observation due to her hypoxia and respiratory distress. She improved over the next 2 days and was eager to be discharged on 07/30/17. She was able to be weaned down off of oxygen and was discharged with instructions to follow-up with pulmonology, Dr. White as well as her primary care provider at [facility]. Patient states she did continue out remaining steroid and Tamiflu. She did return to work, however , yesterday, 08/08/17 she noted to have increasing dyspnea again. Today her dyspnea got significantly worse, prompting an emergency room visit. On arrival to the emergency room today patient was found to be acutely acutely hypoxic with room air saturations of 76%, she was tachycardic at 123, and tachypnea 25/min. At that time she was moving very little air upon auscultation. She was given a DuoNeb breathing treatment as well as IV Solu- Medrol area. Basic labs were obtained. CBC overall unremarkable, chemistry panel revealed mild hyponatremia with a sodium of 133. Chest x-ray did not reveal any acute cardiopulmonary findings. She has continued to require 3-4 liters of oxygen by nasal cannula to maintain adequate saturations. Given the severity of her respiratory distress, accompanied with severe hypoxia hospitalist services were contacted and accepted patient for inpatient admission for further evaluation and treatment. Review of Systems All systems PM: 10-point ROS was reviewed, no additional remarkable complaints except - Constitutional Constitutional: Present: fatigue, weakness - Respiratory Respiratory: Present: cough, dyspnea, dyspnea on exertion, wheezing Past Medical History Patient Stated Medical History Asthma COPD OA Hx of Polysubstance abuse Chronic tobacco dependence Surgical History: Appendectomy Family History Updates: Father and mother both from COPD. 3 sisters all have COPD. 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[employer]) Current residence: Apartment/Private Home Social history: P[facility] Medications Home Medications Medication Instructions Recorded Confirmed Type Acetaminophen/Dextromethorphan 30 ml PO Q4H PRN 07/28/17 08/09/17 History [Daytime Cold & Cough Liquid] Dm/Acetaminophen/Doxylamine 30 ml PO Q4H PRN 07/28/17 08/09/17 History [Nighttime Cold-Flu Liquid] Ascorbic Acid [Vitamin C] 500 mg PO DAILY 08/09/17 08/09/17 History Allergies Allergy/AdvReac Type Severity Reaction Status Date / Time hydroxychloroquine Allergy Severe Rash Verified 08/09/17 15:50 Exam Vital Signs: Temperature 98.4 F 08/09/17 15:40 Pulse Rate 112 H 08/09/17 17:05 Respiratory Rate 20 08/09/17 17:05 Blood Pressure 124/70 08/09/17 17:05 Pulse Oximetry 93 08/09/17 17:31 Height/Weight/BMI: Height 1.6 m Weight 43.545 kg - Constitutional Present: mild distress, well nourished, well developed - Routine HEENT Exam Eye: Present: EOMI ENT: Present: mucous membranes moist, dentition normal - Routine Respiratory Exam Present: dyspnea, decreased breath sounds, wheezes, diminished air movement - Routine Cardiovascular Exam Present: RRR, S1, S2. Absent: murmur - Routine Abdominal Exam Present: soft, normoactive bowel sounds, non distended. Absent: tenderness - Routine Extremities Exam Present: normal capillary refill - Routine Back/Spine/Pelvis Exam Back/Spine: Present: full ROM - Routine Skin Exam Present: intact, dry, warm - Routine Neurological Exam Present: alert, oriented X3, CN II-XII intact, moving all extremities - Routine Psychiatric Exam Present: normal affect, cooperative Results - Labs CBC & Chem 7: 08/09/17 16:24 08/09/17 16:24 Assessment and Plan (1) Chronic obstructive pulmonary disease with acute exacerbation Current visit: No Status: Acute (2) Acute respiratory failure with hypoxia Current visit: No Status: Acute Assessment and Plan: Impression Acute respiratory failure with hypoxia- Room Air sats 67% on arrival COPD exacerbation Hyponatremia (POA) Asthma Chronic tobacco dependence Polysubstance use (alcohol and methamphetamine) Plan The patient inpatient status under the care of Dr. Calhoun. Patient continues to require 3-4 liters of oxygen by nasal cannula to maintain saturations. Place consultation with Dr. White as patient was planning to follow-up with him in the outpatient setting. Scheduled DuoNeb breathing treatments 4 times a day as well as when necessary, as well as Pulmicort twice a day. IV Solu-Medrol 125 milligrams every 6 hours for pulmonary inflammation NS at 100ml/hr given Hyponatremia Ativan as needed for anxiety/air hunger. Obtain a sputum culture and utilize Acapella SCDs to bilateral lower extremity for DVT prophylaxis Encourage tobacco dependence and order nicotine patch Will recheck CBC and BMP tomorrow morning to follow blood counts, renal function and electrolytes Will discuss further orders and plan of care with attending, Dr Calhoun At time of discharge medical care will return to patient's primary care provider , at [facility] DVT Prophylaxis: SCD's - Physician Narrative Physician: Jason Calhoun MD Narrative: Date: 08/09/17 Time: 1944 Have independently interviewed and examined pt. Chart reviewed. Case discussed with ED provider and my FAMILY SERVICE COUNSELOR. Care plan developed with my supervision; agree with above. Presents to [facility] ED secondary to significant difficulty breathing. Was hospitalized at [facility] the first of this month-Influenza positive. Responded well to treatments and discharge home on RA. Has finished course of steroids. Strength and breathing improving, but not return to 100%. Did return to work yesterday. Since then has been much more SOA. Hard to get air in. Increasing cough and congestion. Some chest wall soreness from cough. Little sputum production. Notes increased nasal congestion. Appetite fair-eating some, but not 100%. Stools stable. No urinary pain or discomfort. Evaluated in ED. Initial O2 saturations in the 70s. Despite treatments in ED, saturations only improved to 88%. Very tachypneic. Conversational dyspnea. With acute respiratory failure, patient made inpatient admission for further evaluation and treatment. Lungs: Decreased, tight. Diminished air movement. Diffuse wheezes. Accessory muscles used with breathing. Conversational dyspnea despite O2. CV: Tachy, regular AB: soft flat nt/nd BS decreased EXT: thin, no edema MSE: awake alert appropriate Plan: Inpatient admission to [facility], anticipate greater than 2 midnights of care needed. Supplemental O2. Solu-Medrol 125mg IV q 6 hours. Neb treatments of DuoNeb and budesonide. Acapella and Mucinex DM to help decrease secretions. RT for tobacco cessation. IVF for hydration. Lorazepam prn anxiety secondary to dyspnea. SCD. Will consult with Dr White for pulm evaluation. Monitor lab. Hospital Course Summary Disclaimer: The visit summary below is not to be considered part of the above Progress Note. Hospital Course: Impression Acute respiratory failure with hypoxia- Room Air sats 67% on arrival COPD exacerbation Asthma Chronic tobacco dependence Polysubstance use (alcohol and methamphetamine) Plan The patient inpatient status under the care of Dr. Calhoun. Patient continues to require 3-4 liters of oxygen by nasal cannula to maintain saturations. Place consultation with Dr. White as patient was planning to follow-up with him in the outpatient setting. Scheduled DuoNeb breathing treatments 4 times a day as well as when necessary, as well as Pulmicort twice a day. IV Solu-Medrol 125 milligrams every 6 hours for pulmonary inflammation Ativan as needed for anxiety/air hunger. Obtain a sputum culture and utilize Acapella SCDs to bilateral lower extremity for DVT prophylaxis Encourage tobacco dependence and order nicotine patch Will recheck CBC and BMP tomorrow morning to follow blood counts, renal function and electrolytes Will discuss further orders and plan of care with attending, Dr Calhoun At time of discharge medical care will return to patient's primary care provider , [facility]
[2017-08-09] MEDS ORDERED: NICOTINE PATCH REMOVAL TD ONE (18:27)
[2017-08-09] MEDS ORDERED: NICOTINE 14 MG PATCH TD ONE (18:27)
[2017-08-09] MEDS ORDERED: MENTHOL COUGH DROPS (RICOLA) MM PRN (19:22)
[2017-08-09] MEDS ORDERED: BISACODYL 10 MG SUPPOSITORY RECTALLY PRN (19:22)
[2017-08-09] MEDS ORDERED: ALBUTEROL/IPRATROPIUM 2.5mg-0.5mg/3ml NEB AEROSOL PRN (19:22)
[2017-08-09] MEDS ORDERED: ACETAMINOPHEN 325 MG TABLET PO PRN (19:22)
[2017-08-09] MEDS ORDERED: ONDANSETRON 4 MG/2 ML INJECTION IVP PRN (19:22)
[2017-08-09] MEDS: NS 1,000 ML IV SCH (19:46)
[2017-08-09] MEDS: BUDESONIDE INH.SOLN 0.5mg/2ml NEB AEROSOL SCH (20:41)
[2017-08-09] MEDS: ALBUTEROL/IPRATROPIUM 2.5mg-0.5mg/3ml NEB AEROSOL SCH (20:41)
[2017-08-09] MEDS: SALINE 0.65% NASAL SPRAY 44 ML BOTTLE EA NOSTRIL SCH ×2 (21:54→22:32)
[2017-08-09] MEDS: GUAIFENESIN/D-METHORPHAN 600mg/30mg TABLET PO SCH (21:55)
[2017-08-09] MEDS: METHYLPREDNISOLONE SOD SUCC 125mg/2ml INJECTION IVP SCH (21:55)
[2017-08-09] MEDS ORDERED: FALL RISK - PHARMACY CONSULT XX ONE (22:31)
[2017-08-10] MEDS: METHYLPREDNISOLONE SOD SUCC 125mg/2ml INJECTION IVP SCH ×4 (03:00→20:21)
[2017-08-10] MEDS: NS 1,000 ML IV SCH (06:16)
[2017-08-10] MEDS: ALBUTEROL/IPRATROPIUM 2.5mg-0.5mg/3ml NEB AEROSOL SCH ×4 (06:47→19:50)
[2017-08-10] MEDS: BUDESONIDE INH.SOLN 0.5mg/2ml NEB AEROSOL SCH ×2 (06:47→19:50)
--- NOTE | 2017-08-10 10:17 | Pulmonology Consult Note ---
<Nlie,Erica Brittni - Last Filed: 08/10/17 10:05> History of Present Illness Consult date: 08/10/17 Requesting physician: Jason Calhoun Reason for consult: dyspnea, COPD Chief complaint: SOB History of present illness: This is a 57 yo female recently hospitalized 07/28/17 for Influenza A and Acute Hypoxic Respiratory Failure and COPD. States she finished her prednisone 3 days after her hospitalization along with Tamiflu and has been using the nebulized A/ A. 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 Yesterday unfortunately she had severe SOB, chest tightness and wheezing noted that she presented to the ER. On arrival her O2 sats were 76% on RA, she was tachycardic HR 123, and tachypnea 25/min. She was started on O2, DuoNeb and Solu-Medrol. CXR was negative for acute findings, was afebrile and CBC normal. We have been consulted for her respiratory issues and appreciate the consult. Review of Systems - Constitutional Constitutional: Absent: anorexia, chills, fatigue, fever(s) - EENT Eyes: Absent: change in vision, loss of vision, pain Nose: Absent: change in smell, pain Mouth/Throat: Present: mucosa moist - Cardiovascular Cardiovascular: Present: dyspnea on exertion. Absent: chest pain, palpitations , syncope, edema - Respiratory Respiratory: Present: cough, dyspnea, dyspnea on exertion, wheezing, chest congestion - Gastrointestinal Gastrointestinal: Absent: abdominal pain, change in bowel habits - Musculoskeletal Musculoskeletal: Absent: abnormal gait, arthralgias, back pain, deformity - Integumentary/Breasts Integumentary: Absent: change in hair, change in nails - Neurological Neurological: Absent: abnormal gait, abnormal movements, abnormal speech - Psychiatric Psychiatric: Present: anxiety. Absent: abnormal sleep pattern, behavioral changes - Endocrine Endocrine: Absent: cold intolerance, excessive sweating - Hematologic/Lymphatic Hematologic/Lymphatic: Absent: easy bleeding, easy bruising - Allergic/Immunologic Allergic/Immunologic: Absent: tongue swelling, throat swelling PFSH Patient Stated Medical History Asthma Yes Chronic Obstructive Pulmonary Yes Disease (COPD) Hx Urinary Tract Infection Yes Osteoarthritis Yes Post Menopausal Yes Surgical History: Appendectomy - Social History Smoking status: Current every day smoker (patient reports she smokes 5 cigarettes a day) Housing: house Current occupational status: employed Current residence: Apartment/Private Home Medications Home Medications Medication Instructions Recorded Confirmed Type Acetaminophen/Dextromethorphan 30 ml PO Q4H PRN 07/28/17 08/09/17 History [Daytime Cold & Cough Liquid] Dm/Acetaminophen/Doxylamine 30 ml PO Q4H PRN 07/28/17 08/09/17 History [Nighttime Cold-Flu Liquid] Ascorbic Acid [Vitamin C] 500 mg PO DAILY 08/09/17 08/09/17 History Allergies Allergy/AdvReac Type Severity Reaction Status Date / Time hydroxychloroquine Allergy Severe Rash Verified 08/09/17 15:50 Exam Vital signs: Temperature 96.7 F L 08/10/17 08:20 Pulse Rate 100 08/10/17 08:20 Respiratory Rate 16 08/10/17 08:20 Blood Pressure 144/75 H 08/10/17 08:20 Pulse Oximetry 94 08/10/17 08:20 - Constitutional mild distress, thin, cooperative - Routine HEENT Exam Head: Present: normocephalic, atraumatic Eye: Present: EOMI, PERRL ENT: Present: mucous membranes moist Nose: moist mucous membranes - Routine Neck Exam Present: supple, full ROM, trachea midline - Routine Respiratory Exam Present: decreased breath sounds, wheezes. Absent: accessory muscle use, patient mechanically ventilated - Routine Cardiovascular Exam Present: RRR, S1, S2, no murmur - Routine Abdominal Exam Present: soft, normoactive bowel sounds, non tender - Routine Extremities Exam Present: no edema, non tender, full ROM - Routine Back/Spine/Pelvis Exam Back/Spine: Present: full ROM - Routine Skin Exam Present: intact, dry - Routine Neurological Exam Present: alert, oriented X3, CN II-XII intact - Routine Psychiatric Exam Present: normal affect, normal thought process Results - Laboratory Findings CBC and BMP: 08/10/17 04:12 08/10/17 04:12 Abnormal lab findings: Abnormal Labs 08/10/17 08/10/17 04:12 04:12 WBC 3.7 L D RBC 3.99 L MPV 8.8 L Neutrophils % (Manual) 90.0 H Lymphocytes % (Manual) 8.0 L Lymphocytes # (Manual) 0.3 L Chloride 96 L Carbon Dioxide 32 H Creatinine 0.4 L BUN/Creatinine Ratio 30 H Glucose 168 H - Diagnostic Findings Chest x-ray: image reviewed (see HPI) Assessment and Plan - Assessment and Plan Acute Hypoxic Respiratory Failure COPD exacerbation with likely severe COPD Tobaccoism Anxiety Plan: Pt currently is on O2 at 3L per NC, adelaida, wean to keep sats 90-95%. On BT's with A/A QID, budesonide BID and solumedrol 125mg q6hr. Still wheezing with SOB and, will change A/A to q4hr. Will continue to follow, has ativan for anxiety, may benefit from xanax scheduled, will order. - Time Spent With Patient Total time spent is greater than 50% in coordination of care (as documented) at patient's floor/unit and/or counseling patient: 25 - 35 minutes <Te White - Last Filed: 08/11/17 11:09> [facility] Patient Stated Medical History Asthma Yes Chronic Obstructive Pulmonary Yes Disease (COPD) Hx Urinary Tract Infection Yes Osteoarthritis Yes Post Menopausal Yes Exam Vital signs: Temperature 96.9 F 08/11/17 07:21 Pulse Rate 106 H 08/11/17 07:21 Respiratory Rate 24 08/11/17 10:26 Blood Pressure 140/81 H 08/11/17 07:21 Pulse Oximetry 90 08/11/17 10:26 Results - Laboratory Findings CBC and BMP: 08/11/17 04:30 08/11/17 04:30 Abnormal lab findings: Abnormal Labs 08/10/17 08/10/17 08/11/17 04:12 04:12 04:30 WBC 3.7 L D 11.7 H D RBC 3.99 L 3.68 L Hgb 11.6 L MPV 8.8 L 8.7 L Neutrophils % (Manual) 90.0 H 89.0 H Lymphocytes % (Manual) 8.0 L 5.0 L Neutrophils # (Manual) 10.4 H Lymphocytes # (Manual) 0.3 L 0.6 L Chloride 96 L Carbon Dioxide 32 H Creatinine 0.4 L BUN/Creatinine Ratio 30 H Glucose 168 H 08/11/17 04:30 WBC RBC Hgb MPV Neutrophils % (Manual) Lymphocytes % (Manual) Neutrophils # (Manual) Lymphocytes # (Manual) Chloride Carbon Dioxide 31 H Creatinine 0.4 L BUN/Creatinine Ratio 38 H Glucose 155 H Assessment and Plan (1) Chronic obstructive pulmonary disease with acute exacerbation Status: Acute Current Visit: No (2) Acute respiratory failure with hypoxia Status: Acute Current Visit: No - Time Spent With Patient Total time spent is greater than 50% in coordination of care (as documented) at patient's floor/unit and/or counseling patient: - Attestation Attestation Narrative: I have seen and examined this patient. I have reviewed all pertinent data. The notes written by Ivon Dowd represent my findings and recommendations
[2017-08-10] MEDS: GUAIFENESIN/D-METHORPHAN 600mg/30mg TABLET PO SCH ×2 (10:23→20:22)
[2017-08-10] MEDS: SALINE 0.65% NASAL SPRAY 44 ML BOTTLE EA NOSTRIL SCH ×4 (10:24→20:28)
--- NOTE | 2017-08-10 12:42 | Progress Note ---
- Date 08/10/17 Subjective: F/U: Acute respiratory failure with hypoxia, COPD exacerbation Doing fair-still feeling SOA and congested. Noted cough, but not producing much sputum. Breathing labored at rest with O2, slightly improved from yesterday. Still with sinus congestion/fullness. Appetite stable-eating well. Denies mouth pain or problems swallowing. No nausea or ab pain. Urinating well. Not having f/ c. Strength fair. Notes anxiousness secondary to SOA. Objective Vital signs: Temperature 96.7 F L 08/10/17 08:20 Pulse Rate 100 08/10/17 08:20 Respiratory Rate 24 08/10/17 10:35 Blood Pressure 144/75 H 08/10/17 08:20 Pulse Oximetry 96 08/10/17 10:35 Height/Weight/BMI: Height 1.6 m Weight 45 kg Body Mass Index 17.2 - Constitutional Present: well developed, thin, cooperative. Absent: agitated - Routine HEENT Exam Head: Present: normocephalic, atraumatic Eye: Present: EOMI, PERRL ENT: Present: mucous membranes moist - Routine Respiratory Exam Present: decreased breath sounds, respiratory distress, wheezes, distant breath sounds, diminished air movement - Routine Cardiovascular Exam Present: no murmur, tachycardia - Routine Abdominal Exam Present: soft, non distended, non tender. Absent: normoactive bowel sounds ( decreased), guarding - Routine Extremities Exam Present: no edema, pulses intact. Absent: cyanosis, clubbing - Routine Musculoskeletal Exam Musculoskeletal: Present: no clubbing or cyanosis - Routine Skin Exam Present: dry, warm - Routine Neurological Exam Present: alert, oriented X3, CN II-XII intact, moving all extremities, vision grossly intact, hearing grossly intact, normal speech. Absent: motor deficit, altered mental status - Routine Psychiatric Exam Present: normal affect, normal thought process, cooperative, anxious (Mild, not restless or agitated). Absent: agitated Results - Labs CBC & Chem 7: 08/10/17 04:12 08/10/17 04:12 Microbiology Results: Microbiology 08/10/17 10:28 Sputum, Expectorated Gram Stain - Final 08/10/17 10:28 Sputum, Expectorated Sputum Culture - Final Assessment and Plan (1) Chronic obstructive pulmonary disease with acute exacerbation Current visit: No Status: Acute (2) Acute respiratory failure with hypoxia Current visit: No Status: Acute Assessment and Plan: Impression Acute respiratory failure with hypoxia- Room Air sats 67% on arrival COPD exacerbation Hyponatremia (POA) Asthma Chronic tobacco dependence Anxiety secondary to air hunger Leukopenia (Not POA) Polysubstance use (alcohol and methamphetamine) Underweight with BMI 17.6 Plan Continue Solu-Medrol 125mg IVF q 6 hours - lungs still very tight and congested , end expiratory wheezed present bilaterally. Continue Neb treatment, acapella, and Mucinex DM to help respiratory status. May have Tessalon Perles as needed for cough. Still needing O2 at 4L per [place] - with continued conversational dyspnea, still to early to try to decrease. Decrease IVF to 50cc/hr as oral intake improving. Again, encouraged tobacco cessation. Dr White consulted for pulmonary evaluation and concurs with treatments initiated - did add scheduled alprazolam 0.25mg BID to help decrease anxiety secondary to air hunger. Recheck BMP in am secondary to resolving hyponatremia. Will recheck CBC due to leukopenia. Time spent with patient care 25 minutes. DVT Prophylaxis: SCD's - Time spent with patient Time with patient PN: 25 minutes - Physician Narrative Narrative: Date: 08/10/17 Time: 1239 Hospital Course Summary Disclaimer: The visit summary below is not to be considered part of the above Progress Note. Hospital Course: 08/09/17 Inpatient Admission The patient inpatient status under the care of Dr. Calhoun. Patient continues to require 3-4 liters of oxygen by nasal cannula to maintain saturations. Place consultation with Dr. White as patient was planning to follow-up with him in the outpatient setting. Scheduled DuoNeb breathing treatments 4 times a day as well as when necessary, as well as Pulmicort twice a day. IV Solu-Medrol 125 milligrams every 6 hours for pulmonary inflammation. Ativan as needed for anxiety/air hunger. Obtain a sputum culture and utilize Acapella. SCDs to bilateral lower extremity for DVT prophylaxis. Encourage tobacco dependence and order nicotine patch. Will recheck CBC and BMP tomorrow morning to follow blood counts, renal function and electrolytes. At time of discharge medical care will return to patient's primary care provider , at [facility]. 08/10/17 Continue Solu-Medrol 125mg IVF q 6 hours - lungs still very tight and congested , end expiratory wheezed present bilaterally. Continue Neb treatment, acapella, and Mucinex DM to help respiratory status. May have Tessalon Perles as needed for cough. Still needing O2 at 4L per [place] - with continued conversational dyspnea, still to early to try to decrease. Decrease IVF to 50cc/hr as oral intake improving. Again, encouraged tobacco cessation. Dr White consulted for pulmonary evaluation and concurs with treatments initiated - did add scheduled alprazolam 0.25mg BID to help decrease anxiety secondary to air hunger.
[2017-08-10] MEDS ORDERED: BENZONATATE 200 MG CAPSULE PO PRN (12:53)
[2017-08-10] MEDS ORDERED: NS 1,000 ML IV SCH ×2 (13:00→20:30)
[2017-08-10] MEDS: NICOTINE 14 MG PATCH TD SCH (14:05)
[2017-08-10 14:59] VITALS: BMI 17.5
[2017-08-10] MEDS: ALPRAZolam 0.25 MG TABLET PO SCH (20:22)
[2017-08-11] MEDS: METHYLPREDNISOLONE SOD SUCC 125mg/2ml INJECTION IVP SCH ×4 (03:47→20:31)
[2017-08-11] MEDS: BUDESONIDE INH.SOLN 0.5mg/2ml NEB AEROSOL SCH ×2 (06:41→20:16)
[2017-08-11] MEDS: ALBUTEROL/IPRATROPIUM 2.5mg-0.5mg/3ml NEB AEROSOL SCH ×5 (06:41→23:06)
[2017-08-11] MEDS: NICOTINE 14 MG PATCH TD SCH (09:06)
[2017-08-11] MEDS: GUAIFENESIN/D-METHORPHAN 600mg/30mg TABLET PO SCH ×2 (09:07→20:30)
[2017-08-11] MEDS: ALPRAZolam 0.25 MG TABLET PO SCH ×2 (09:07→20:31)
[2017-08-11] MEDS: SALINE 0.65% NASAL SPRAY 44 ML BOTTLE EA NOSTRIL SCH ×4 (09:11→20:32)
[2017-08-11] MEDS: NICOTINE PATCH REMOVAL TD SCH (09:12)
--- NOTE | 2017-08-11 15:29 | Progress Note ---
- Date 08/11/17 Subjective: Patient is 57 showed female who is well known to the hospitalist services after a recent admission on 07/28/17 for influenza A with acute respiratory failure, hypoxia and COPD. She was hospitalized as an outpatient observation due to her hypoxia and respiratory distress. She improved over the next 2 days and was eager to be discharged on 07/30/17. She was able to be weaned down off of oxygen and was discharged with instructions to follow-up with pulmonology, Dr. White as well as her primary care provider at [facility]. Patient states she did continue out remaining steroid and Tamiflu. She did return to work, however , yesterday, 08/08/17 she noted to have increasing dyspnea again. 08/09/17 her dyspnea got significantly worse, prompting an emergency room visit. On arrival to the emergency room the patient was found to be acutely hypoxic with room air saturations of 76%, she was tachycardic at 123, and tachypnea 25/ min. At that time she was moving very little air upon auscultation. She was given a DuoNeb breathing treatment as well as IV Solu-Medrol area. Basic labs were obtained. CBC overall unremarkable, chemistry panel revealed mild hyponatremia with a sodium of 133. Chest x-ray did not reveal any acute cardiopulmonary findings. She has continued to require 3-4 liters of oxygen by nasal cannula to maintain adequate saturations. Given the severity of her respiratory distress, accompanied with severe hypoxia hospitalist services were contacted and accepted patient for inpatient admission for further evaluation and treatment. Today she continues to be disconnected. She continues to move very little air and have bilateral wheezing. She denies any other complaints at this time. Particularly she denies any chest pain or palpitations. No nausea, vomiting or abdominal pain. She denies diarrhea or constipation. She is eating without problem. Objective Vital signs: Temperature 96.9 F 08/11/17 07:21 Pulse Rate 106 H 08/11/17 07:21 Respiratory Rate 22 08/11/17 15:14 Blood Pressure 140/81 H 08/11/17 07:21 Pulse Oximetry 94 08/11/17 15:14 Height/Weight/BMI: Height 1.6 m Weight 46.3 kg Body Mass Index 17.5 Comments: Gen: alert and oriented. NAD Skin: warm and dry HEENT: NC/AT PERRL, EOMI, Sclera, lids and conjunctiva wnl. MMM. OP clear. Neck: No JVD, Carotids 2+ without bruits Lungs: markedly diminished with poor air movement, bilateral wheezes. CV: regular. No murmur, rub or gallop Abd: soft. +BS. NT/ND MS: No edema. Good strength and ROM Neuro: No focal deficits Results - Labs CBC & Chem 7: 08/11/17 04:30 08/11/17 04:30 Microbiology Results: Microbiology 08/10/17 10:28 Sputum, Expectorated Gram Stain - Final 08/10/17 10:28 Sputum, Expectorated Sputum Culture - Final Assessment and Plan (1) Chronic obstructive pulmonary disease with acute exacerbation Current visit: No Status: Acute (2) Acute respiratory failure with hypoxia Current visit: No Status: Acute Assessment and Plan: Impression/Plan: 1. Acute respiratory failure with hypoxia- Room Air sats 67% on arrival -Dr. White seeing her again this admission. -Advair started -On Steroids IV -Resp therapy/acapella 2. COPD/asthma exacerbation -Resp therapy q4h -IV steroids -Advair 3. Hyponatremia (POA) -resolved 4. Chronic tobacco dependence -Pt advised to quit 5. Anxiety secondary to air hunger -Schedule xanax 6. Leukopenia (Not POA)-resolved, now elevated -Likely steroid effects -repeat lab in am. 7. Polysubstance use (alcohol and methamphetamine) 8. Underweight with BMI 17.6 9. Prophylaxis -SCDs, heparin, Pepcid - Physician Narrative Narrative: Date: 08/11/17 Time: 1525 Hospital Course Summary Disclaimer: The visit summary below is not to be considered part of the above Progress Note. Hospital Course: 08/09/17 Inpatient Admission The patient inpatient status under the care of Dr. Calhoun. Patient continues to require 3-4 liters of oxygen by nasal cannula to maintain saturations. Place consultation with Dr. White as patient was planning to follow-up with him in the outpatient setting. Scheduled DuoNeb breathing treatments 4 times a day as well as when necessary, as well as Pulmicort twice a day. IV Solu-Medrol 125 milligrams every 6 hours for pulmonary inflammation. Ativan as needed for anxiety/air hunger. Obtain a sputum culture and utilize Acapella. SCDs to bilateral lower extremity for DVT prophylaxis. Encourage tobacco dependence and order nicotine patch. Will recheck CBC and BMP tomorrow morning to follow blood counts, renal function and electrolytes. At time of discharge medical care will return to patient's primary care provider , at [facility]. 08/10/17 Continue Solu-Medrol 125mg IVF q 6 hours - lungs still very tight and congested , end expiratory wheezed present bilaterally. Continue Neb treatment, acapella, and Mucinex DM to help respiratory status. May have Tessalon Perles as needed for cough. Still needing O2 at 4L per NC - with continued conversational dyspnea, still to early to try to decrease. Decrease IVF to 50cc/hr as oral intake improving. Again, encouraged tobacco cessation. Dr White consulted for pulmonary evaluation and concurs with treatments initiated - did add scheduled alprazolam 0.25mg BID to help decrease anxiety secondary to air hunger.
[2017-08-11] MEDS: HEPARIN SUB-Q 5,000units/0.5ml INJECTION SQ SCH (16:24)
[2017-08-11] MEDS: SALINE FLUSH 10ml SYRINGE IVF PRN (20:30)
[2017-08-12] MEDS: HEPARIN SUB-Q 5,000units/0.5ml INJECTION SQ SCH ×3 (00:26→17:44)
[2017-08-12] MEDS ORDERED: HYDRALAZINE 20 MG/ML INJECTION IVP PRN (00:47)
[2017-08-12] MEDS: METHYLPREDNISOLONE SOD SUCC 125mg/2ml INJECTION IVP SCH ×4 (02:03→20:13)
[2017-08-12] MEDS: ALBUTEROL/IPRATROPIUM 2.5mg-0.5mg/3ml NEB AEROSOL SCH ×6 (03:10→22:51)
[2017-08-12] MEDS: BUDESONIDE INH.SOLN 0.5mg/2ml NEB AEROSOL SCH ×2 (07:00→18:55)
[2017-08-12] MEDS: NICOTINE 14 MG PATCH TD SCH (09:12)
[2017-08-12] MEDS: NICOTINE PATCH REMOVAL TD SCH (09:14)
[2017-08-12] MEDS: GUAIFENESIN/D-METHORPHAN 600mg/30mg TABLET PO SCH ×2 (09:14→20:13)
[2017-08-12] MEDS: SALINE 0.65% NASAL SPRAY 44 ML BOTTLE EA NOSTRIL SCH ×4 (09:15→20:15)
[2017-08-12] MEDS: FAMOTIDINE 20 MG TABLET PO SCH (09:58)
[2017-08-12] MEDS: ALPRAZolam 0.25 MG TABLET PO SCH ×2 (09:59→20:14)
--- NOTE | 2017-08-12 10:37 | XRay Report ---
INDICATION: hypoxia PROCEDURE: CHEST 2-VIEWS UPRIGHT (PA & LAT) Encounter: Initial COMPARISON: August 09, 2017 FINDINGS: The lungs are clear without evidence of focal abnormal airspace opacity. There is no pleural effusion or pneumothorax. Bilateral nipple shadows. Hyperinflation. Calcified granulomas. The heart size, mediastinal contours and pulmonary vascularity are within normal limits. There is no significant skeletal abnormality. IMPRESSION: No acute cardiopulmonary disease. COPD. .
--- NOTE | 2017-08-12 12:18 | Pulmonology Progress Note ---
Subjective Principal diagnosis: COPD exac Interval history: Pt sitting up in bed, states she still has some SOB, worse with ambulation and not back to normal yet. + cough but no sputum at this time. Exam Vital signs: Temperature 97.2 F 08/12/17 00:00 Pulse Rate 78 08/12/17 08:00 Respiratory Rate 24 08/12/17 11:40 Blood Pressure 146/81 H 08/12/17 02:06 Pulse Oximetry 94 08/12/17 11:40 - Constitutional mild distress, thin, cooperative - Routine HEENT Exam Head: Present: normocephalic, atraumatic Eye: Present: EOMI, PERRL ENT: Present: mucous membranes moist - Routine Neck Exam Present: supple, full ROM, trachea midline - Routine Respiratory Exam Present: dyspnea, decreased breath sounds, wheezes. Absent: patient mechanically ventilated - Routine Cardiovascular Exam Present: RRR, S1, S2, no murmur - Routine Abdominal Exam Present: soft, normoactive bowel sounds - Routine Extremities Exam Present: no edema, non tender, full ROM, pulses intact - Routine Back/Spine/Pelvis Exam Back/Spine: Present: full ROM - Routine Skin Exam Present: intact, dry - Routine Neurological Exam Present: alert, oriented X3, CN II-XII intact - Routine Psychiatric Exam Present: normal affect, normal thought process Assessment and Plan - Assessment and Plan Acute Hypoxic Respiratory Failure COPD exacerbation with likely severe COPD Tobaccoism Anxiety Plan: Pt currently is on O2 at 2L per NC, adelaida, wean to keep sats 90-95%. On BT's with A/A q4hr, budesonide BID and solumedrol 125mg q6hr. Still wheezing with SOB, follow, change solum to 80q6. On xanax scheduled BID, less anxious. - Time Spent With Patient Total time spent is greater than 50% in coordination of care (as documented) at patient's floor/unit and/or counseling patient: less than 15 minutes
--- NOTE | 2017-08-12 14:50 | Progress Note ---
- Date 08/12/17 Subjective: Patient is 57 showed female who is well known to the hospitalist services after a recent admission on 07/28/17 for influenza A with acute respiratory failure, hypoxia and COPD. She was hospitalized as an outpatient observation due to her hypoxia and respiratory distress. She improved over the next 2 days and was eager to be discharged on 07/30/17. She was able to be weaned down off of oxygen and was discharged with instructions to follow-up with pulmonology, Dr. White as well as her primary care provider at [facility]. Patient states she did continue out remaining steroid and Tamiflu. She did return to work, however , yesterday, 08/08/17 she noted to have increasing dyspnea again. 08/09/17 her dyspnea got significantly worse, prompting an emergency room visit. On arrival to the emergency room the patient was found to be acutely hypoxic with room air saturations of 76%, she was tachycardic at 123, and tachypnea 25/ min. At that time she was moving very little air upon auscultation. She was given a DuoNeb breathing treatment as well as IV Solu-Medrol area. Basic labs were obtained. CBC overall unremarkable, chemistry panel revealed mild hyponatremia with a sodium of 133. Chest x-ray did not reveal any acute cardiopulmonary findings. She has continued to require 3-4 liters of oxygen by nasal cannula to maintain adequate saturations. Given the severity of her respiratory distress, accompanied with severe hypoxia hospitalist services were contacted and accepted patient for inpatient admission for further evaluation and treatment. Today, she continues to be quite SOA. She is still wheezing audibly. She is not moving air very well. She denies CP, palp. She denies N/V/D/C. No abdominal pain. She has not been up and around much. She is still requiring 2-4 liters of oxygen. I suspect she is going to need home oxygen. Objective Vital signs: Temperature 97.6 F 08/12/17 10:00 Pulse Rate 123 H 08/12/17 10:00 Respiratory Rate 24 08/12/17 11:40 Blood Pressure 143/80 H 08/12/17 10:00 Pulse Oximetry 94 08/12/17 11:40 Height/Weight/BMI: Height 1.6 m Weight 48 kg Body Mass Index 17.5 Comments: Gen: alert and oriented. NAD Skin: warm and dry HEENT: NC/AT PERRL, EOMI, Sclera, lids and conjunctiva wnl. MMM. OP clear. Neck: No JVD, Carotids 2+ without bruits Lungs: markedly diminished with poor air movement, bilateral wheezes. CV: regular. No murmur, rub or gallop Abd: soft. +BS. NT/ND MS: No edema. Good strength and ROM Neuro: No focal deficits Results - Labs CBC & Chem 7: 08/12/17 04:51 08/11/17 04:30 Microbiology Results: Microbiology 08/10/17 10:28 Sputum, Expectorated Gram Stain - Final 08/10/17 10:28 Sputum, Expectorated Sputum Culture - Final Assessment and Plan (1) Chronic obstructive pulmonary disease with acute exacerbation Current visit: No Status: Acute (2) Acute respiratory failure with hypoxia Current visit: No Status: Acute Assessment and Plan: Impression/Plan: 1. Acute respiratory failure with hypoxia- Room Air sats 67% on arrival -Dr. White seeing her again this admission. -budesonide -On Steroids IV-adjusted per pulm -Resp therapy/acapella 2. COPD/asthma exacerbation -Resp therapy q4h -IV steroids -budesonide 3. Hyponatremia (POA) -resolved 4. Chronic tobacco dependence -Pt advised to quit 5. Anxiety secondary to air hunger -Schedule xanax 6. Leukopenia (Not POA)-resolved, now elevated and climbing -Likely steroid effects -repeat lab in am. 7. Polysubstance use (alcohol and methamphetamine) 8. Underweight with BMI 17.6 9. Prophylaxis -SCDs, heparin, Pepcid - Physician Narrative Narrative: Date: 08/12/17 Time: 1447 Hospital Course Summary Disclaimer: The visit summary below is not to be considered part of the above Progress Note. Hospital Course: 08/09/17 Inpatient Admission The patient inpatient status under the care of Dr. Calhoun. Patient continues to require 3-4 liters of oxygen by nasal cannula to maintain saturations. Place consultation with Dr. White as patient was planning to follow-up with him in the outpatient setting. Scheduled DuoNeb breathing treatments 4 times a day as well as when necessary, as well as Pulmicort twice a day. IV Solu-Medrol 125 milligrams every 6 hours for pulmonary inflammation. Ativan as needed for anxiety/air hunger. Obtain a sputum culture and utilize Acapella. SCDs to bilateral lower extremity for DVT prophylaxis. Encourage tobacco dependence and order nicotine patch. Will recheck CBC and BMP tomorrow morning to follow blood counts, renal function and electrolytes. At time of discharge medical care will return to patient's primary care provider , at [facility]. 08/10/17 Continue Solu-Medrol 125mg IVF q 6 hours - lungs still very tight and congested , end expiratory wheezed present bilaterally. Continue Neb treatment, acapella, and Mucinex DM to help respiratory status. May have Tessalon Perles as needed for cough. Still needing O2 at 4L per [place] - with continued conversational dyspnea, still to early to try to decrease. Decrease IVF to 50cc/hr as oral intake improving. Again, encouraged tobacco cessation. Dr White consulted for pulmonary evaluation and concurs with treatments initiated - did add scheduled alprazolam 0.25mg BID to help decrease anxiety secondary to air hunger.
[2017-08-12] MEDS: SALINE FLUSH 10ml SYRINGE IVF PRN (20:14)
[2017-08-13] MEDS: HEPARIN SUB-Q 5,000units/0.5ml INJECTION SQ SCH ×3 (00:24→16:42)
[2017-08-13] MEDS: METHYLPREDNISOLONE SOD SUCC 125mg/2ml INJECTION IVP SCH ×4 (03:02→22:40)
[2017-08-13] MEDS: ALBUTEROL/IPRATROPIUM 2.5mg-0.5mg/3ml NEB AEROSOL SCH ×4 (03:40→23:13)
[2017-08-13] MEDS: BUDESONIDE INH.SOLN 0.5mg/2ml NEB AEROSOL SCH ×2 (07:11→18:53)
[2017-08-13] MEDS: NICOTINE 14 MG PATCH TD SCH (08:40)
[2017-08-13] MEDS: NICOTINE PATCH REMOVAL TD SCH (08:41)
[2017-08-13] MEDS: SALINE 0.65% NASAL SPRAY 44 ML BOTTLE EA NOSTRIL SCH ×4 (08:42→22:43)
[2017-08-13] MEDS: FAMOTIDINE 20 MG TABLET PO SCH (08:42)
[2017-08-13] MEDS: ALPRAZolam 0.25 MG TABLET PO SCH ×2 (08:42→22:42)
[2017-08-13] MEDS: GUAIFENESIN/D-METHORPHAN 600mg/30mg TABLET PO SCH ×2 (08:42→22:41)
--- NOTE | 2017-08-13 09:41 | Pulmonology Progress Note ---
Subjective Principal diagnosis: COPD exac Interval history: Pt sitting up in bed, states she still has some SOB but feels it's getting better. + cough but no sputum at this time. Exam Vital signs: Temperature 96.7 F L 08/13/17 07:10 Pulse Rate 106 H 08/13/17 07:10 Respiratory Rate 18 08/13/17 07:11 Blood Pressure 139/81 08/13/17 07:10 Pulse Oximetry 96 08/13/17 07:12 - Constitutional no acute distress, thin, cooperative - Routine HEENT Exam Head: Present: normocephalic, atraumatic Eye: Present: EOMI, PERRL ENT: Present: mucous membranes moist - Routine Neck Exam Present: supple, full ROM - Routine Respiratory Exam Present: decreased breath sounds, wheezes. Absent: accessory muscle use, patient mechanically ventilated - Routine Cardiovascular Exam Present: RRR, S1, S2, no murmur - Routine Abdominal Exam Present: soft, normoactive bowel sounds - Routine Extremities Exam Present: no edema, non tender, full ROM - Routine Back/Spine/Pelvis Exam Back/Spine: Present: full ROM - Routine Skin Exam Present: intact, dry - Routine Neurological Exam Present: alert, oriented X3, CN II-XII intact - Routine Psychiatric Exam Present: normal affect, normal thought process Assessment and Plan - Assessment and Plan Acute Hypoxic Respiratory Failure COPD exacerbation with likely severe COPD Tobaccoism Anxiety Plan: Pt currently is on O2 at 2L per [place], adelaida, wean to keep sats 90-95%. On BT's with A/A q4hr, budesonide BID and solumedrol 80mg q6hr. Still wheezing but improved, SOB improving also, follow. On xanax scheduled BID, less anxious, cont to encourage smoking cessation. - Time Spent With Patient Total time spent is greater than 50% in coordination of care (as documented) at patient's floor/unit and/or counseling patient: less than 15 minutes
--- NOTE | 2017-08-13 12:26 | Progress Note ---
- Date 08/13/17 Subjective: Raquel states that she's breathing easier compared to yesterday. She is down to 2L. She continues to have a cough. She denies chest pain or diaphoresis. No leg swelling, recent travel or recent sx. She c/o intermittent anxiety. At home she drinks approx 2 beers and 2 shots daily, sometimes more. Her last drink was 7 days ago. She denies abdominal or GI symptoms. Objective Vital signs: Temperature 96.7 F L 08/13/17 07:10 Pulse Rate 106 H 08/13/17 07:10 Respiratory Rate 18 08/13/17 11:41 Blood Pressure 139/81 08/13/17 07:10 Pulse Oximetry 96 08/13/17 11:42 Height/Weight/BMI: Height 1.6 m Weight 48.1 kg Body Mass Index 17.5 - Constitutional Present: mild distress, well nourished, well developed, thin - Routine HEENT Exam Head: Present: normocephalic Eye: Absent: conjunctival icterus, scleral injection ENT: Present: oropharynx clear - Routine Respiratory Exam Present: accessory muscle use, decreased breath sounds, prolonged expiratory phase, wheezes (faint exp.), diminished air movement - Routine Cardiovascular Exam Present: RRR, S1, S2, tachycardia - Routine Abdominal Exam Present: soft, normoactive bowel sounds, non distended, non tender - Routine Extremities Exam Present: no edema, pulses intact - Routine Back/Spine/Pelvis Exam Back/Spine: Present: full ROM - Routine Musculoskeletal Exam Musculoskeletal: Present: moving extremities well - Routine Skin Exam Present: intact, dry, warm - Routine Neurological Exam Present: alert, oriented X3 - Routine Psychiatric Exam Present: normal affect, normal thought process, cooperative Results - Labs CBC & Chem 7: 08/13/17 04:25 08/13/17 04:25 Microbiology Results: Microbiology 08/10/17 10:28 Sputum, Expectorated Gram Stain - Final 08/10/17 10:28 Sputum, Expectorated Sputum Culture - Final Assessment and Plan (1) Chronic obstructive pulmonary disease with acute exacerbation Current visit: No Status: Acute (2) Acute respiratory failure with hypoxia Current visit: No Status: Acute Assessment and Plan: Impression Acute respiratory failure with hypoxia- Room Air sats 67% on arrival COPD/asthma exacerbation Sinus tachycardia 110s-120s Hyponatremia (POA) Chronic tobacco dependence Anxiety secondary to air hunger Leukopenia/Leukocytosis (Not POA)-resolved Polysubstance use (alcohol and methamphetamine) Underweight with BMI 17.6 Plan: Continue O2, Advair, acapella, Steroids IV -- per Dr. White. Change Albuterol to Xopenex d/t tachycardia. Sinus tachycardia: could be med-induced or EtOH withdrawal, though last drink was 7 days ago. Also in consideration is PE. Check D-dimer. (She was not tachycardic during her last admit, with HR 70-80s.) She is on scheduled Xanax for anxiety and EtOH withdrawal. She also has Ativan IV PRN (high-risk med); last received around 1999 last night. WBC decreased to 10.6 D/W Dr. Mandel. 08/13/2017-8:51 PM-I reviewed this chart, the patient history, and the LINE TESTER's/PA 's documented findings as above. We discussed and formulated the assessment and plan as above with the additions below.-Dr. Mandel The patient was seen this evening in her room. She stated that she felt more jittery with the new breathing treatment and didn't feel that she could breathe as well and requested her previous DuoNeb instead. She states her cough is a little better. She states she is eating and drinking well and having normal bowel movements. She denies any known history of thyroid problems. On exam she is alert and oriented and in no acute distress. HEENT reveals oropharynx to be moist. Neck is supple without obvious thyromegaly. Chest reveals decreased breath sounds throughout and some mild expiratory wheezing. Cardiovascular reveals a borderline tachycardic rate with irregular rhythm. Abdomen is soft and nontender with positive bowel sounds. Extremities are free of edema. Skin is warm and dry and without rashes. Neurologic reveals the patient to be alert and oriented. She has no tremulousness. TSH is low at 0.03. D-dimer is less than 150 Glucose is 155 Impression Acute hypoxic respiratory failure secondary to COPD exacerbation-currently down to 1 L COPD exacerbation Sinus tachycardia-normal d-dimer Low TSH Excessive alcohol use-currently without confusion or tremulousness. She is receiving when necessary benzodiazepine Underweight Plan Check free T3 and free T4 in the morning. Discontinue Xopenex and ipratropium and restart DuoNeb. Continue IV steroids for COPD exacerbation. Titrate down oxygen as tolerated. Check CBC, renal panel, magnesium in the morning DVT Prophylaxis: SCD's, SQ Heparin GI Prophylaxis: Protonix - Physician Narrative Narrative: Date: 08/13/17 Time: 1224 Hospital Course Summary Disclaimer: The visit summary below is not to be considered part of the above Progress Note. Hospital Course: 08/09/17 Inpatient Admission The patient inpatient status under the care of Dr. Calhoun. Patient continues to require 3-4 liters of oxygen by nasal cannula to maintain saturations. Place consultation with Dr. White as patient was planning to follow-up with him in the outpatient setting. Scheduled DuoNeb breathing treatments 4 times a day as well as when necessary, as well as Pulmicort twice a day. IV Solu-Medrol 125 milligrams every 6 hours for pulmonary inflammation. Ativan as needed for anxiety/air hunger. Obtain a sputum culture and utilize Acapella. SCDs to bilateral lower extremity for DVT prophylaxis. Encourage tobacco dependence and order nicotine patch. Will recheck CBC and BMP tomorrow morning to follow blood counts, renal function and electrolytes. At time of discharge medical care will return to patient's primary care provider [facility]. 08/10/17 Continue Solu-Medrol 125mg IVF q 6 hours - lungs still very tight and congested , end expiratory wheezed present bilaterally. Continue Neb treatment, acapella, and Mucinex DM to help respiratory status. May have Tessalon Perles as needed for cough. Still needing O2 at 4L per NC - with continued conversational dyspnea, still to early to try to decrease. Decrease IVF to 50cc/hr as oral intake improving. Again, encouraged tobacco cessation. Dr White consulted for pulmonary evaluation and concurs with treatments initiated - did add scheduled alprazolam 0.25mg BID to help decrease anxiety secondary to air hunger. 08/11-08/12 1. Acute respiratory failure with hypoxia- Room Air sats 67% on arrival -Dr. White seeing her again this admission. -budesonide -On Steroids IV-adjusted per pulm -Resp therapy/acapella 2. COPD/asthma exacerbation -Resp therapy q4h -IV steroids -budesonide 3. Hyponatremia (POA) -resolved 4. Chronic tobacco dependence -Pt advised to quit 5. Anxiety secondary to air hunger -Schedule xanax 6. Leukopenia (Not POA)-resolved, now elevated and climbing -Likely steroid effects 08/13 Continue O2, Advair, acapella, Steroids IV -- per Dr. White. Change Albuterol to Xopenex d/t tachycardia. Sinus tachycardia: could be med-induced or EtOH withdrawal, though last drink was 7 days ago. Also in consideration is PE. Check D-dimer. (She was not tachycardic during her last admit, with HR 70-80s.) She is on scheduled Xanax for anxiety and EtOH withdrawal. WBC decreased to 10.6
[2017-08-13] MEDS ORDERED: IPRATROPIUM ORAL INH SCH (12:45)
[2017-08-13] MEDS: Ipratropium Inh NEB 0.02% (0.5mg/2.5ml) AEROSOL SCH ×2 (15:52→18:53)
[2017-08-13] MEDS ORDERED: ALBUTEROL/IPRATROPIUM 2.5mg-0.5mg/3ml NEB AEROSOL PRN (20:44)
[2017-08-14] MEDS: HEPARIN SUB-Q 5,000units/0.5ml INJECTION SQ SCH ×2 (02:11→10:02)
[2017-08-14] MEDS: METHYLPREDNISOLONE SOD SUCC 125mg/2ml INJECTION IVP SCH ×2 (04:21→10:17)
[2017-08-14] MEDS: ALBUTEROL/IPRATROPIUM 2.5mg-0.5mg/3ml NEB AEROSOL SCH ×2 (07:11→10:22)
[2017-08-14] MEDS: BUDESONIDE INH.SOLN 0.5mg/2ml NEB AEROSOL SCH (07:11)
[2017-08-14 07:30] VITALS: BP 145/81; TEMP 97.2
[2017-08-14] MEDS: GUAIFENESIN/D-METHORPHAN 600mg/30mg TABLET PO SCH (10:02)
[2017-08-14] MEDS: FAMOTIDINE 20 MG TABLET PO SCH (10:02)
[2017-08-14] MEDS: NICOTINE PATCH REMOVAL TD SCH (10:03)
[2017-08-14] MEDS: NICOTINE 14 MG PATCH TD SCH (10:03)
[2017-08-14] MEDS: ALPRAZolam 0.25 MG TABLET PO SCH (10:17)
[2017-08-14] MEDS: SALINE 0.65% NASAL SPRAY 44 ML BOTTLE EA NOSTRIL SCH (10:19)
[2017-08-14 10:27] VITALS: RESP 20
[2017-08-14 11:33] VITALS: PULSE 101; O2SAT 96
--- NOTE | 2017-08-14 15:48 | Discharge Summary ---
Discharge Information Date of admission: 08/09/17 17:37 Anticipated date of discharge: 08/14/17 Attending Physician: Lissa Mandel MD Primary care physician: Christa Mcghee APRN Consults: Dr White- Pulmonary - Discharge Diagnosis (1) Chronic obstructive pulmonary disease with acute exacerbation Status: Acute (2) Acute respiratory failure with hypoxia Status: Acute Acute respiratory failure with hypoxia- Room Air sats 67% on arrival COPD/asthma exacerbation Sinus tachycardia 110s-120s Hyponatremia (POA) Chronic tobacco dependence Anxiety secondary to air hunger Leukopenia/Leukocytosis (Not POA)-resolved Polysubstance use (alcohol and methamphetamine) Underweight with BMI 17.6 - Procedures Procedures: None - Laboratory Labs: 08/14/17 05:21 08/14/17 05:21 - Microbiology Microbiology 08/10/17 10:28 Sputum, Expectorated Gram Stain - Final 08/10/17 10:28 Sputum, Expectorated Sputum Culture - Final - Radiology Radiology: 08/09/17- Chest Xray- IMPRESSION: Stable appearance of the chest without acute cardiopulmonary disease. 08/12/17- Chest Xray- IMPRESSION: No acute cardiopulmonary disease. COPD. - Pathology None History of Present Illness HPI: Patient is 57 showed female who is well known to the hospitalist services after a recent admission on 07/28/17 for influenza A with acute respiratory failure, hypoxia and COPD. She was hospitalized as an outpatient observation due to her hypoxia and respiratory distress. She improved over the next 2 days and was eager to be discharged on 07/30/17. She was able to be weaned down off of oxygen and was discharged with instructions to follow-up with pulmonology, Dr. White as well as her primary care provider at [facility]. Patient states she did continue out remaining steroid and Tamiflu. She did return to work, however , yesterday, 08/08/17 she noted to have increasing dyspnea again. Today her dyspnea got significantly worse, prompting an emergency room visit. On arrival to the emergency room today patient was found to be acutely acutely hypoxic with room air saturations of 76%, she was tachycardic at 123, and tachypnea 25/min. At that time she was moving very little air upon auscultation. She was given a DuoNeb breathing treatment as well as IV Solu- Medrol area. Basic labs were obtained. CBC overall unremarkable, chemistry panel revealed mild hyponatremia with a sodium of 133. Chest x-ray did not reveal any acute cardiopulmonary findings. She has continued to require 3-4 liters of oxygen by nasal cannula to maintain adequate saturations. Given the severity of her respiratory distress, accompanied with severe hypoxia hospitalist services were contacted and accepted patient for inpatient admission for further evaluation and treatment. Objective Vital signs: Temperature 97.2 F 08/14/17 07:26 Pulse Rate 101 H 08/14/17 11:32 Respiratory Rate 20 08/14/17 10:24 Blood Pressure 145/81 H 08/14/17 07:26 Pulse Oximetry 96 08/14/17 11:32 Height/Weight/BMI: Height 1.6 m Weight 49.3 kg Body Mass Index 17.5 - Constitutional Present: no acute distress, well nourished, well developed - Routine HEENT Exam Eye: Present: EOMI ENT: Present: mucous membranes moist, dentition normal - Routine Respiratory Exam Present: CTA bilaterally, wheezes - Routine Cardiovascular Exam Present: RRR, S1, S2. Absent: murmur - Routine Abdominal Exam Present: soft, normoactive bowel sounds, non distended. Absent: tenderness - Routine Extremities Exam Present: normal capillary refill - Routine Skin Exam Present: dry, warm - Routine Neurological Exam Present: alert, oriented X3, CN II-XII intact - Routine Lymphatic Exam Lymphatic: Absent: adenopathy - Routine Psychiatric Exam Present: normal affect Hospital Course This is a general summary of the patient's hospital course. For more details refer to the complete medical record. Hospital course: 08/09/17 Inpatient Admission The patient inpatient status under the care of Dr. Calhoun. Patient continues to require 3-4 liters of oxygen by nasal cannula to maintain saturations. Place consultation with Dr. White as patient was planning to follow-up with him in the outpatient setting. Scheduled DuoNeb breathing treatments 4 times a day as well as when necessary, as well as Pulmicort twice a day. IV Solu-Medrol 125 milligrams every 6 hours for pulmonary inflammation. Ativan as needed for anxiety/air hunger. Obtain a sputum culture and utilize Acapella. SCDs to bilateral lower extremity for DVT prophylaxis. Encourage tobacco dependence and order nicotine patch. Will recheck CBC and BMP tomorrow morning to follow blood counts, renal function and electrolytes. At time of discharge medical care will return to patient's primary care provider [facility]. 08/10/17 Continue Solu-Medrol 125mg IVF q 6 hours - lungs still very tight and congested , end expiratory wheezed present bilaterally. Continue Neb treatment, acapella, and Mucinex DM to help respiratory status. May have Tessalon Perles as needed for cough. Still needing O2 at 4L per NC - with continued conversational dyspnea, still to early to try to decrease. Decrease IVF to 50cc/hr as oral intake improving. Again, encouraged tobacco cessation. Dr White consulted for pulmonary evaluation and concurs with treatments initiated - did add scheduled alprazolam 0.25mg BID to help decrease anxiety secondary to air hunger. 08/11-08/12 1. Acute respiratory failure with hypoxia- Room Air sats 67% on arrival -Dr. White seeing her again this admission. -budesonide -On Steroids IV-adjusted per pulm -Resp therapy/acapella 2. COPD/asthma exacerbation -Resp therapy q4h -IV steroids -budesonide 3. Hyponatremia (POA) -resolved 4. Chronic tobacco dependence -Pt advised to quit 5. Anxiety secondary to air hunger -Schedule xanax 6. Leukopenia (Not POA)-resolved, now elevated and climbing -Likely steroid effects 08/13 Continue O2, Advair, acapella, Steroids IV -- per Dr. White. Change Albuterol to Xopenex d/t tachycardia. Sinus tachycardia: could be med-induced or EtOH withdrawal, though last drink was 7 days ago. Also in consideration is PE. Check D-dimer. (She was not tachycardic during her last admit, with HR 70-80s.) She is on scheduled Xanax for anxiety and EtOH withdrawal. WBC decreased to 10.6 08/14/17- Discharge He shouldn't on examined prior to discharge. She does continue to have some expiratory wheezes. It is not recommended by our service that she leave so soon after the severity of her respiratory distress, however, she does have a family member that has been in an accident and is not expected to make it through the day. He does accept the responsibilities and verbalizes understanding of her risk of leaving AGAINST MEDICAL ADVICE. She is informed that her condition may worsen, she may become more short of breath and have severe debility and/or . She is sent with a prescription of prednisone to utilize as a taper starting at 40 milligrams daily, taper dose by 10 milligrams every 4 days. She is in agreement to follow-up with pulmonology, Dr. White in the next 2 weeks. She will also see primary care, Christa Rogers at [facility] in the next 1 week. She is advised to present to a emergency department if her dyspnea returns or if she has worsening symptoms. Time spent with patient: discharge greater than 30 minutes Resuscitation Status: Full Code Discharge Plan - Discharge Disposition Discharge Date: 08/14/17 Disposition: 07 Against Medical Advice *Condition: Improved Reason For Visit (Visit label in EMR): COPD exacerbation, hypoxia - Discharge Medications *Discharge Medications: New Acetaminophen [Tylenol] 650 mg PO Q5H PRN tab PRN Reason: Discomfort Fluticasone/Salmeterol 250/50 [Advair 250-50 Diskus] 1 puff ORAL INH RTBID inhaler Nicotine Patch Removal 1 removal TD DAILY #20 patch predniSONE [Prednisone] See Protocol PO DAILY #40 tab Sodium Chloride [Deep Sea] 2 spray EA NOSTRIL QID spray Continue Dm/Acetaminophen/Doxylamine [Nighttime Cold-Flu Liquid] 30 ml PO Q4H PRN PRN Reason: Prn Orders Ascorbic Acid [Vitamin C] 500 mg PO DAILY Albuterol/Ipratropium [Duoneb] 3 ml AEROSOL RTQID #120 vial Discontinued Acetaminophen/Dextromethorphan [Daytime Cold & Cough Liquid] 30 ml PO Q4H PRN PRN Reason: Prn Orders - Discharge Packet/Instructions *Diet: Regular *Activity: Activity as tolerated *Pain Management/Treatment: Tylenol as needed *Wound Care: N/A Additional Instructions: Take Prednisone taper as instructed *Expected Signs/Symptoms: Improvement of breathing *Notify Physician if: Fever, worsening breathing problems *During Business Hours Contact: Health min *After Business Hours Contact: Contact Health min *Pending Lab/Results: Follow up w/your PCP - Referrals/Follow Up *Referrals/Follow Up: Te White MD [Physician] - (Make follow up apt for 1 week ) Christa Rogers APRN [Advanced Practice Nurse] - (Schedule follow up apt for 1 week ) - Patient Handouts Patient Handouts: COPD (Chronic Obstructive Pulmonary Disease) (GEN), Hypoxia ( GEN) - Dismissal Complete Discharge Instructions are:: Complete Physician Narrative - Narrative Physician: Lissa Mandel MD Attestation Narrative: Date: 08/14/17 Time: 7 PM-Dr. Mandel I reviewed this chart, the patient history, and the BULLET MAKER's/PA's documented findings as above. We discussed and formulated the assessment and plan as above with the additions below. I saw the patient earlier today prior to discharge. She stated that her mother- in-law had an intracranial hemorrhage and was in the hospital and [place] and not expected to live. She wanted to be discharged so she could see her. The patient is currently on room air. She states she's feeling better. She understands that we are not recommending that she leave today since she has still been on IV steroids and is just off oxygen today. She does understand that her COPD could become worse and she stated she would present to the closest emergency room if she had problems. She states she's feeling better. She denies any pain. She denies shortness of breath. I did discuss with her that her TSH was low and that further thyroid studies are pending including free T3 and free T4. She will need to follow-up with her PCP regarding these results. TSH was checked because of borderline tachycardia. On the day of discharge the patient was alert and oriented. Chest reveals some mild expiratory wheezing throughout but is improved compared to yesterday. Cardiovascular reveals a borderline tachycardic rate with irregular rhythm. Abdomen is soft and nontender. Extremities are free of edema. The patient was discharged AGAINST MEDICAL ADVICE. She was given prescriptions for prednisone with recommendations for follow-up with her primary care provider and Dr. White.
== END 2017-08-14 13:02 | disposition left against medical advice (07) | DRG 190 ==
LOC: ED 15:35 → MED 17:37 → SUATTDRO 17:37 → MED 19:25
PROVIDERS: ADMIT Hospitalist; ATTEND Internal Medicine